=== PATIENT | female | born 1995 ===

== ENCOUNTER 2024-12-25 21:18 | Inpatient (IN) | payer OTHER, SELFPAY ==
--- NOTE | ~2024-12-25 | US_ITS ---
EXAMINATION: US RETROPERITONEAL COMPLETE (RENAL) CLINICAL INFORMATION: Urinary incontinence.. COMPARISON: None available. TECHNIQUE: Real-time imaging of the kidneys and bladder. FINDINGS: RIGHT KIDNEY: 12.4 x 5.3 x 5.2 cm (SAG x AP x TRV). The kidney is normal in size, contour, and echogenicity. Renal cortical thickness is normal. No calculi or focal parenchymal lesions. No hydronephrosis. LEFT KIDNEY: 11.8 x 5.3 x 5.0 cm (SAG x AP x TRV). The kidney is normal in size, contour, and echogenicity. Renal cortical thickness is normal. No calculi or focal parenchymal lesions. No hydronephrosis. BLADDER: Well distended and normal. Bilateral ureteral jets are demonstrated. Prevoid bladder volume is 571 mL. Postvoid bladder volume is 12.3 mL. US/US retroperitoneal comp IMPRESSION: Unremarkable renal ultrasound. Electronically signed by: Job Villagomez MD 01/01/2025 04:25 PM EDT
[2024-12-25 21:55] VITALS: BP 113/58; PULSE 106; RESP 18; TEMP 36.7; O2SAT 97; BMI 29.7
--- NOTE | 2024-12-25 22:05 | ECG_ITS ---
Test Reason : DIZZINESS Blood Pressure : */* mmHG Vent. Rate : 96 BPM Atrial Rate : 96 BPM P-R Int : 146 ms QRS Dur : 74 ms QT Int : 350 ms P-R-T Axes : 60 30 15 degrees QTcB Int : 442 ms Normal sinus rhythm Nonspecific T wave abnormality Abnormal ECG No previous ECGs available Referred By: Generic ED Physician Electronically Signed By: DIRK LUTZ MD
[2024-12-25 22:24] LABS: Hematocrit 38.2 % (37.0-47.0); Hemoglobin 13.5 g/dl (12.0-16.0); Imm Gran Abs Auto 0.03 X10*3/uL (0.00-0.03); Imm Gran Pct Auto 0.4 % (0.0-0.4); Lymphocytes Absolute Auto 2.0 X10*3/uL (1.2-4.9); MANUAL DIFF FLAG NO; Mean Corpuscular HGB Conc 35.3 g/dl (31.0-35.0); Mean Corpuscular Hemoglobin 30.2 pg (27.0-33.0); Mean Corpuscular Volume 85.5 fL (80.0-98.0); NRBC Abs Auto 0.000 X10*3/uL (0.0-0.012); NRBC Pct Auto 0.0 /100WBC (0.0-0.2); Platelet Count 237 X10*3/uL (160-400); Red Blood Count 4.47 X10*6/uL (4.20-5.50); White Blood Count 8.1 X10*3/uL (4.8-10.8)
[2024-12-25 22:38] LABS: Alanine Aminotransferase 17 U/L (0-31); Albumin Level 4.9 g/dL (3.5-5.0); Alkaline Phosphatase 54 U/L (39-117); Anion Gap 16 (12-20); Aspartate Amino Transferase 16 U/L (5-31); Blood Urea Nitrogen 9 mg/dL (9-16); Calcium 9.2 mg/dL (8.4-10.2); Carbon Dioxide 21 mmol/L (22-29); Chloride 109 mmol/L (96-108); Creatinine Clr Calc Pharmacy 100.4; Estimated Glomerular Filt Rate > 60; Potassium 3.5 mmol/L (3.3-5.1); Sodium 142 mmol/L (135-145); Total Protein 7.2 g/dL (6.5-8.0)
[2024-12-25 22:46] LABS: Troponin-I High Sensitivity < 2.7 ng/L (<3.5-17.0)
[2024-12-26 00:20] VITALS: BP 126/75; PULSE 87; RESP 16; TEMP 36.3; O2SAT 96
[2024-12-26 00:25] VITALS: BP 126/75; PULSE 87; RESP 16; TEMP 36.3; O2SAT 96
--- NOTE | 2024-12-26 00:54 | PC.NURSE ---
pt stated to RN that she had no plans of SI or hurting others; however stated she self injured last week cutting her thigh w/ a razor.
--- NOTE | 2024-12-26 01:35 | ED_ITS ---
HPI - General Adult General Chief complaint: General Medical Stated complaint: psy eval Time Seen by Provider: 12/26/24 01:04 Source: patient Mode of arrival: ambulatory Limitations: no limitations History of Present Illness ED Provider: Dr. Marisa Kinney HPI narrative: Patient comes to the emergency room complaining of having PTSD. Patient states that something triggered her PTSD, patient states that she was very anxious, running around, feeling dizzy. Patient states that she had a anxiety, possible panic attack, tunnel vision. Not sure if she passed out. Patient states that now that she has been in the emergency room sleeping, she feels much better and has no symptoms. Denies SI or HI. However, patient requesting to be seen by the care team. Patient states that she has been previously diagnosed with bipolar disorder, has been out of medications for 1 week, states that she just does not feel hungry, denies any nausea vomiting diarrhea or any abdominal pain. Related Data Allergies Allergy/AdvReac Type Severity Reaction Status Date / Time No Known Allergies Allergy Verified 12/25/24 21:55 Review of Systems 2 Review of Systems: Constitutional : No Weight loss, No Fever, No Chills, No Night Sweats, No Fatigue, No Malaise ENT/Mouth : No Hearing loss, No Ear Pain, No Nasal Congestion, No Sinus Pain, No Hoarseness, No sore throat, No Rhinorrhea, No Swallowing Difficulty Eyes: No Eye Pain, No Swelling, No Redness, No Foreign Body, No Discharge, No Vision Changes Cardiovascular : No Chest Pain, No SOB, No Dyspnea on Exertion, No Orthopnea, No Edema, No Palpitations Respiratory : No Cough, No Sputum, No Wheezing, No Smoke Exposure, No Dyspnea Gastrointestinal : No Nausea, No Vomiting, No Diarrhea, No Constipation, No abdominal Pain, No Hematochezia, No Melena Genitourinary : no irregular bleeding, No Dysuria, No Urinary Frequency, No Hematuria, No Urinary Incontinence, No Urgency, No Flank Pain, No Urinary Flow Changes, No Hesitancy Musculoskeletal : No joint pain, No Myalgias, No Joint Swelling Skin : No Skin Lesions, No rash Neuro : No Weakness, No Numbness, No Paresthesias, No Loss of Consciousness, No Dizziness, No Headache Psych : Complaining of anxiety, depression, having PTSD symptoms, triggers, no SI or HI Heme/Lymph: No Bruising, No Bleeding,No Lymphadenopathy Endocrine : No Polyuria, No Polydipsia, No Temperature Intolerance [facility] Past Medical History Medical History (Updated 12/26/24 @ 01:43 by Marisa Kinney MD) Bipolar disorder Social History Social History Smoked in Last 30 Days: Yes Use of substances other than those prescribed or required for medical reasons: No Advance Directives: No Advance Directives Information Provided: Yes Physical Exam ED Exam Exam: Appearance: Alert. Oriented X3. No acute distress. Eyes: Pupils equal, round and reactive to light. ENT: Pharynx normal. Neck: Normal inspection. Neck supple. No lymph nodes noted. No crepitus CVS: Normal heart rate and rhythm. Pulses normal. Normal S1 and S2 Respiratory: No respiratory distress. Breath sounds normal. No Wheezing. No rales Abdomen: Soft and nontender. No rigidity. No distention. Skin: Skin warm and dry. Normal skin color. Normal skin turgor. Extremities: No lower extremity edema. No Lacerations. No Rash Neuro: Oriented X 3. No motor deficit. No sensory deficit. Moving all extremities. No slurred speech. CN 2 through 12 grossly intact Psych: calm, cooperative, normal affect Vital Signs: Vital Signs - 24 hr 12/25/24 21:55 12/26/24 00:20 12/26/24 00:25 Temperature 98.0 F 97.3 F 97.3 F Pulse Rate 106 H 87 87 Respiratory Rate 18 16 16 Blood Pressure 113/58 L 126/75 126/75 Pulse Oximetry 97 96 96 Oxygen Delivery Method Room Air Room Air Room Air BMI result Body Mass Index 29.7 Course Course Course Narrative: Patient states that earlier today she was having a panic attack, dizziness. Denies chest pain or shortness of breath. Patient states that now that she has slept a few hours here in the ED, she feels much better and asymptomatic. Requesting to be seen by the care team. All of patient's labs and imaging pending Patient denies SI or HI Patient reports being out of meds for 1 week because she has not been hungry and she is supposed to take her meds with food Medical Decision Making Medical Decision Making MDM Narrative: My interpretation of EKG: Normal sinus rhythm, heart rate 96, no ST segment depression or elevation, no T-wave inversion, QTC 442 My interpretation of labs: No significant abnormality in patient's hematology and chemistry Urinalysis pending Care team consult pending Physician observation started at 01:40 Patient is not SI or HI, Section 12 is not indicated at this time Differential Diagnosis Differential Diagnoses: The differential diagnosis associated with the presentation includes (Anxiety, depression, bipolar disorder, PTSD) Admission/Observation Consideration of admission/observation: Escalation of care including admission/observation considered (Patient is under physician observation waiting to be seen by the care team) Lab Data MDM Lab Attestation statement: I reviewed the patient's lab results. 12/25/24 22:19 12/25/24 22:19 Labs: Lab Results 12/25/24 Range/Units 22:19 WBC 8.1 (4.8-10.8) X10*3/uL RBC 4.47 (4.20-5.50) X10*6/uL Hgb 13.5 (12.0-16.0) g/dl Hct 38.2 (37.0-47.0) % MCV 85.5 (80.0-98.0) fL MCH 30.2 (27.0-33.0) pg MCHC 35.3 H (31.0-35.0) g/dl RDW 12.4 (11.0-16.0) % Plt Count 237 (160-400) X10*3/uL MPV 9.7 (9.4-12.3) fL Immature Gran % (Auto) 0.4 (0.0-0.4) % Neut % (Auto) 68.9 (45-73) % Lymph % (Auto) 24.1 (20-40) % Avery % (Auto) 5.9 (2-11) % Eos % (Auto) 0.5 (0-4) % Baso % (Auto) 0.2 (0-2) % Lymph # (Auto) 2.0 (1.2-4.9) X10*3/uL [place] # (Auto) 0.5 (0.1-1.2) X10*3/uL Eos # (Auto) 0.0 (0.0-0.4) X10*3/uL Baso # (Auto) 0.0 (0.0-0.2) X10*3/uL Abs Immat Gran (auto) 0.03 (0.00-0.03) X10*3/uL Absolute Neuts (auto) 5.6 (2.0-8.3) x10*3/uL Absolute Nucleated RBC 0.000 (0.0-0.012) X10*3/uL Nucleated RBC % (auto) 0.0 (0.0-0.2) /100WBC Sodium 142 (135-145) mmol/L Potassium 3.5 (3.3-5.1) mmol/L Chloride 109 H (96-108) mmol/L Carbon Dioxide 21 L (22-29) mmol/L Anion Gap 16 (12-20) BUN 9 (9-16) mg/dL Creatinine 0.94 (0.5-1.4) mg/dL Estim Creat Clear Calc 100.4 Estimated GFR > 60 Random Glucose 134 H (60-115) mg/dL Calcium 9.2 (8.4-10.2) mg/dL Total Bilirubin 0.9 (0.0-1.0) mg/dL AST 16 (5-31) U/L ALT 17 (0-31) U/L Alkaline Phosphatase 54 (39-117) U/L Troponin I High Sens < 2.7 (<3.5-17.0) ng/L Total Protein 7.2 (6.5-8.0) g/dL Albumin 4.9 (3.5-5.0) g/dL Beta HCG, Quant < 2 mIU/mL Critical Care Time Critical Care Time Critical Care Time: Yes Total Critical Care Time: 35 Attestation: I have personally provided critical care time. Time includes review of lab data, radiology results, discussion with consultants, and monitoring for potential decompensation. Intervention performed as documented. Discharge Plan Discharge Clinical Impression: Post traumatic stress disorder Print Language: [place]
[2024-12-26 02:06] VITALS: BP 108/69; PULSE 90; RESP 16; TEMP 36.4; O2SAT 98
--- NOTE | 2024-12-26 02:06 | MHC.EDTECH ---
Pt changed due to being seen by care team. Per RN, Pt OK to keep phone and belongings at bedside (no SI/HI). Urine collected and sent. Vital signs up to date
[2024-12-26 02:12] LABS: Appearance Urine Cloudy; Glucose Urine UA Negative (Negative); PH 6.0 (5.0-9.0); Specific Gravity - Urine >= 1.030 (1.005-1.025); UMIC TRIGGER UACC YES
[2024-12-26 02:20] LABS: Cannabinoid Screen Urine Not Detected (Not Detect)
[2024-12-26 05:51] VITALS: BP 110/73; PULSE 87; RESP 16; TEMP 36.2; O2SAT 98
--- NOTE | 2024-12-26 08:49 | PC.NURSE ---
Pt seen by crisis team staff; pt to be an inpatient bedsearch; pt will be changed over per protocol and belongings secured
--- NOTE | 2024-12-26 09:20 | PC.NURSE ---
Pt resting quietly on stretcher; denies SI/HI at this time; cooperative with care and exchange teller; verbal report gv to JOSIE Guevara and pt to be moved to the pod
--- NOTE | 2024-12-26 11:27 | PC.NURSE ---
med rec completed with patient. Patient stating she usually takes latuda 60mg daily but took 120mg yesterday, but feels she would like to stop latuda at this time. states no longer taking wellbutrin or risperidal. takes ativan 0.5mg prn as needed for anxiety- usually her script lasts her about 2 months but this month it only lasted her x 1 month. Has been taking prazosin 7mg at bedtime.
--- NOTE | 2024-12-26 13:48 | PHA.MEDREC ---
Pharmacy Consult ? Medication Reconciliation Pharmacy has reviewed the medication reconciliation completed by nursing. Pt states no longer taking wellbutrin or risperidal. She takes ativan 0.5mg prn as needed for anxiety.
[2024-12-26 14:12] VITALS: BP 123/77; PULSE 77; RESP 18; TEMP 36.3; O2SAT 95; BMI 29.5
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
[2024-12-26 19:54] VITALS: BP 96/53; PULSE 71; O2SAT 99
[2024-12-27 08:00] VITALS: BP 94/48; PULSE 79; RESP 18; TEMP 36.1; O2SAT 98
[2024-12-27 08:45] LABS: Hemoglobin A1C 117.5492 umol/L; Total Hemoglobin (HGBA1C) 3515.6819 umol/L
[2024-12-27 09:03] LABS: Alanine Aminotransferase 20 U/L (0-31); Albumin Level 4.5 g/dL (3.5-5.0); Alkaline Phosphatase 58 U/L (39-117); Aspartate Amino Transferase 17 U/L (5-31); Blood Urea Nitrogen 11 mg/dL (9-16); Calcium 9.2 mg/dL (8.4-10.2); Cholesterol 188 mg/dL (<200); Creatinine Clr Calc Pharmacy 92.2; Estimated Glomerular Filt Rate > 60; HDL Cholesterol 29 mg/dL (>40); Total Protein 6.6 g/dL (6.5-8.0); Triglycerides 117 mg/dL (<150)
[2024-12-27 09:10] LABS: Anion Gap 12 (12-20); Carbon Dioxide 27 mmol/L (22-29); Chloride 108 mmol/L (96-108); Potassium 3.8 mmol/L (3.3-5.1); Sodium 143 mmol/L (135-145)
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
[2024-12-27 09:17] LABS: Thyroid Stimulating Hormone 0.70 uIU/mL (0.32-4.0)
[2024-12-27 20:00] VITALS: BP 118/66; PULSE 90; TEMP 36.1; O2SAT 94
[2024-12-27 20:31] VITALS: BP 118/66
[2024-12-28 08:00] VITALS: BP 94/52; PULSE 63; RESP 16; TEMP 36.8; O2SAT 98
[2024-12-28 20:00] VITALS: BP 112/60; PULSE 72; RESP 16; TEMP 36.6; O2SAT 97
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
[2024-12-29 08:00] VITALS: BP 96/59; PULSE 72; RESP 16; TEMP 36.7; O2SAT 97
[2024-12-29] MEDS: Milk of Magnesia 30 ML ORAL.SUSP PO (11:26)
[2024-12-29 20:00] VITALS: BP 98/53; PULSE 89; TEMP 36.1; O2SAT 97
[2024-12-29 20:21] VITALS: BP 98/53
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
[2024-12-30 08:00] VITALS: BP 94/51; PULSE 65; RESP 16; TEMP 35.9; O2SAT 97
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
[2024-12-30] MEDS: Milk of Magnesia 30 ML ORAL.SUSP PO (12:15)
[2024-12-30 20:00] VITALS: BP 126/73; PULSE 92; RESP 16; TEMP 36.6; O2SAT 99
[2024-12-30 20:23] VITALS: BP 126/73
--- NOTE | 2024-12-30 23:04 | PC.NURSE ---
Patient c/o body aches and said the aching shortly after taking Remeron. Vitals at 2255 temp 96.7 O2 on room air 99 BP 107/68 pulse 83, right arm sitting.
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
[2024-12-31 07:52] VITALS: BP 106/58; PULSE 76; RESP 18; TEMP 36.3; O2SAT 97
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
[2024-12-31 11:42] LABS: HBsAGNum1 0.37 S/CO (0.00-0.99); HIV Num 1 0.04 S/CO (0.00-0.99); Hepatitis B Surface Antigen Negative (Negative); Syphilis Screen Nonreactive (Nonreactive); ~HepC Num1 0.07 S/CO (0.00-0.79); ~Hepatitis C Antibody Nonreactive (Nonreactive)
[2024-12-31 11:50] LABS: Bacterial Vaginosis PCR POSITIVE (Negative); Candida Group PCR NOT DETECTED (Not Detect); Candida glab krusei PCR NOT DETECTED (Not Detect); Trichomonas vaginalis PCR NOT DETECTED (Not Detect)
[2024-12-31 12:20] LABS: CT PCR NOT DETECTED (Not Detect.); NG PCR NOT DETECTED (Not Detect.)
[2024-12-31 20:00] VITALS: BP 128/84; PULSE 105; TEMP 36.6; O2SAT 94
[2024-12-31 20:23] VITALS: BP 128/84
[2025-01-01 08:00] VITALS: BP 134/68; PULSE 95; TEMP 36.1; O2SAT 99
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
[2025-01-01 20:00] VITALS: BP 127/83; PULSE 100; RESP 16; TEMP 36.7; O2SAT 97
[2025-01-01 20:26] VITALS: BP 127/83
--- NOTE | 2025-01-02 | EEG_ITS ---
This is a 16 channel EEG with an EKG lead. Patient is reported awake during the tracing. Background EEG rhythm is about 10 hertz 5-20 microvolt posteriorly and lower amplitude fast anteriorly. Photic stimulation does not produce any significant abnormality. Hyperventilation also did not produce any significant problem. Cardiac lead did not reveal any significant abnormality. No sharp wave spikes or paroxysmal tendency or asymmetry noted. Impression: Unremarkable EEG. MTDD
[2025-01-02 07:00] VITALS: BMI 31.5
[2025-01-02 08:00] VITALS: BP 114/71; PULSE 92; RESP 18; TEMP 36.2; O2SAT 98
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
--- NOTE | 2025-01-02 12:36 | P.PNUR_ITS ---
Subjective Subjective Date of Service: 01/02/25 Interval history: Reviewed renal bladder ultrasound results with the patient, within normal limits. Urine culture pending Physical Exam 2 Vital Signs: Vital Signs: Last Vital Signs Temp 97.1 F 01/02/25 08:00 Pulse 92 01/02/25 08:00 Resp 18 01/02/25 08:00 BP 114/71 01/02/25 08:00 Pulse Ox 98 01/02/25 08:00 O2 Del Method Room Air 01/02/25 08:00 BMI result Body Mass Index 31.5 Urology Results Labs 12/25/24 22:19 12/27/24 07:56 Progress Note: A&P Assessment and plan (1) Post traumatic stress disorder: Status: Acute (2) Urinary incontinence: Status: Acute Plan Will trial low-dose anticholinergic, oxybutynin ER 5 mg daily. Urine culture pending. Discussed timed voiding and limiting caffeine intake and dietary bladder irritants, carbonated beverages, spicy food. The patient has been doing Kegel exercises. May benefit in the future as an outpatient with pelvic floor physical therapy. Time Spent With Patient Time: Total time managing care of this patient today ____ minutes.
[2025-01-02 20:00] VITALS: BP 113/67; PULSE 102; RESP 16; TEMP 36.1; O2SAT 96
[2025-01-03 08:00] VITALS: BP 128/79; PULSE 89; RESP 16; TEMP 36.7; O2SAT 97
[2025-01-03] MEDS: oxyBUTYnin chloride ER 5 MG TAB.ER.24 PO (08:43)
--- NOTE | 2025-01-03 10:27 | HO.PSYCHPN ---
Subjective Subjective Date of Service: 01/03/25 Reason For Visit: PTSD Subjective Notes: Conditional Voluntary Healthcare Proxy: No Guardianship: No Medical Problems Affecting Mental Status: No Interim History: Pt declined skull xrays, CAT Head and MRI. She did accept EEG which was completed. She discussed wanting to begin a stimulant which will wait until out pt care post MRI. Report sleep is improving, but still interrupted- will trial prn CPZ 10 mg HS Denies SI,HI,AH,VH. Probable discharge next week. Pt not feeling ready at the current time. Full med review with pt today. Medication Compliance: Yes Side effects from medications: No Attending Groups: Yes Review of Systems eval in progress Medical Review of Systems: unchanged Review of Systems Review of Systems sleep- SANDY, needing to get up last night to eat, however reports feeling well rested today. Mental Status Exam Mental Status Exam Patient Appearance: Appropriate Patient Orientation: Person, Place, Time and Situation Level of Consciousness: Alert Patient Behavior: Talkative, Fatigued, Distractible and Good Eye Contact Mood Description: Depressed and Apprehensive Affect Description: Flat Patient Cognition Impaired: No Ability to Follow Directions: Good Speech Pattern: Spontaneous Speech Memory Description: Episodic Impaired Hallucinations: None Delusions: Not Present Perceptual Disturbances: Depersonalization and Derealization Thought Process: Distracted Thought Content: positive for Circumstantial and positive for Perseveration Depressive Symptoms: Increased Anxiety, Diff. Making Decisions, Increased Fatigue and Difficulty Concentrating Judgement: Fair Diagnostics Vital Signs (24Hr): Vital Signs - 24 hr 01/02/25 20:00 Temperature 97.0 F Pulse Rate 102 H Respiratory Rate 16 Blood Pressure 113/67 Pulse Oximetry 96 Oxygen Delivery Method Room Air BMI result Body Mass Index 31.5 Labs 12/25/24 22:19 12/27/24 07:56 Imaging Radiology Impressions: ITS Impressions Retroperitoneum Ultrasound 01/01/25 16:02 IMPRESSION: Unremarkable renal ultrasound. Electronically signed by: Job Villagomez MD 01/01/2025 04:25 PM EDT RP Medications Medications Current Medications Acetaminophen (Acetaminophen 325 Mg Tablet) 650 mg PO Q6H PRN PRN Reason: Headache/Pain, Scale 1-10 Last Admin: 12/30/24 23:00 Dose: 650 mg Al Hydroxide/Mg Hydroxide (Magnesium Hydrox/Alum Hydrox 30 Ml Oral.Susp) 30 ml PO Q6H PRN PRN Reason: Heartburn/Nausea Benztropine Mesylate (Benztropine Mesylate 1 Mg Tablet) 1 mg PO BEDTIME MICKEY Last Admin: 01/02/25 20:45 Dose: 1 mg Bisacodyl (Bisacodyl 5 Mg Tablet.Dr) 10 mg PO DAILY PRN PRN Reason: Constipation Hydroxyzine HCl (Hydroxyzine Hcl 50 Mg Tablet) 50 mg PO Q6H PRN PRN Reason: mild anxiety Lorazepam (Lorazepam 0.5 Mg Tablet) 0.5 mg PO BID PRN PRN Reason: Anxiety Last Admin: 01/02/25 11:55 Dose: 0.5 mg Magnesium Hydroxide (Milk Of Magnesia 30 Ml Oral.Susp) 30 ml PO DAILY PRN PRN Reason: Constipation Last Admin: 12/30/24 12:15 Dose: 30 ml Metronidazole (Metronidazole 500 Mg Tablet) 500 mg PO BID MICKEY Last Admin: 01/03/25 08:43 Dose: 500 mg Mirtazapine (Mirtazapine 7.5 Mg Tablet) 7.5 mg PO BEDTIME MICKEY Last Admin: 01/02/25 20:45 Dose: 7.5 mg Nicotine (Nicotine 14 Mg Patch.Td24) 14 mg TRANSDERMA DAILY PRN PRN Reason: Smoking cessation Nicotine Polacrilex (Nicotine Polacrilex 2 Mg Gum) 2 mg BUCCAL Q2H PRN PRN Reason: Nicotine Cravings Last Admin: 01/03/25 10:01 Dose: 2 mg Olanzapine (Olanzapine 10 Mg Tablet) 10 mg PO BEDTIME MICKEY Last Admin: 01/02/25 20:45 Dose: 10 mg Olanzapine (Olanzapine 2.5 Mg Tablet) 2.5 mg PO BID PRN PRN Reason: agitation Last Admin: 01/03/25 10:01 Dose: 2.5 mg Oxybutynin Chloride (Oxybutynin Chloride Er 5 Mg Tab.Er.24) 5 mg PO DAILY MICKEY Last Admin: 01/03/25 08:43 Dose: 5 mg Polyethylene Glycol (Polyethylene Glycol 3350 17 Gm Powd.Pack) 17 gm PO DAILY PRN PRN Reason: Constipation Prazosin HCl (Prazosin Hcl 1 Mg Capsule) 3 mg PO BEDTIME MICKEY; Protocol Last Admin: 01/02/25 20:44 Dose: 3 mg Trazodone HCl (Trazodone Hcl 50 Mg Tablet) 50 mg PO BEDTIME PRN PRN Reason: Insomnia Last Admin: 12/30/24 20:22 Dose: 50 mg Allergies Allergies Allergy/AdvReac Type Severity Reaction Status Date / Time No Known Allergies Allergy Verified 12/25/24 21:55 Assessment & Plan Assessment & Plan (1) Post traumatic stress disorder: Status: Acute Code(s): F43.10 - Post-traumatic stress disorder, unspecified (2) Bipolar disorder: Status: Acute Code(s): F31.9 - Bipolar disorder, unspecified Plan 01/03/25: CPZ 10 mg hs prn Discharge planning for next week. Reason for continued inpatient stay Substantial Risk for: rapid decompensation Time Spent With Patient Time: Total time managing care of this patient today ____ minutes.
[2025-01-03 20:00] VITALS: BP 112/69; PULSE 106; TEMP 36.2; O2SAT 96
[2025-01-03 20:28] VITALS: BP 112/69
[2025-01-04 08:00] VITALS: BP 111/58; PULSE 98; TEMP 36.1; O2SAT 97
[2025-01-04] MEDS: oxyBUTYnin chloride ER 5 MG TAB.ER.24 PO (09:55)
--- NOTE | 2025-01-04 17:32 | HO.PSYCHPN ---
Subjective Subjective Date of Service: 01/04/25 Reason For Visit: PTSD Interim History: Remains depressed but says she is feeling better than when she came in. She says she felt out of it this morning when she woke up and thinks it may be related to the Trazodone. EEG non-revealing and unremarkable. Denies SI,HI,AH,VH. Review of Systems Review of Systems sleep- SANDY, needing to get up last night to eat, however reports feeling well rested today. Yes all other systems are reviewed and are negative Constitutional: Reports no additional constitutional complaints Eyes: Reports no additional eye complaints Reports system reviewed and no additional complaints, except as documented Cardiovascular: Reports no additional cardiovascular complaints Respiratory: Reports no additional respiratory complaints Gastrointestinal: Reports no additional gastrointestinal complaints Musculoskeletal: Reports no additional musculoskeletal complaints Skin/Breast: Reports system reviewed and no additional complaints, except as docu Reports system reviewed and no additional complaints, except as documented Psychiatric: Reports no additional psychiatric complaints Endocrine: Reports no additional endocrine complaints Hematologic/Lymphatic: Reports no additional hematologic/lymphatic complaints Allergic/Immunologic: Reports no additional allergic/immunologic complaints Mental Status Exam Mental Status Exam Narrative: Appearance: Casually dressed, adequate hygiene Behavior: Calm and cooperative throughout the interview. Eye contact is appropriate, and there are no signs of psychomotor agitation or retardation Speech: Normal volume and prosody Thought process: Logical and goal-directed Thought content: Future oriented no self-harming thoughts, focus on past physical trauma which he correlates to neurological symptoms Mood: Calm Affect: Constricted SI:denies HI:denies VH/AH:none Delusions: None Insight/judgment: Fair insight and judgment Memory/cog: Alert, oriented x 4. grossly intact to conversational testing Patient Appearance: Appropriate Patient Orientation: Person, Place, Time and Situation Level of Consciousness: Alert Patient Behavior: Talkative, Fatigued, Distractible and Good Eye Contact Mood Description: Depressed and Apprehensive Affect Description: Flat Patient Cognition Impaired: No Ability to Follow Directions: Good Speech Pattern: Spontaneous Speech Memory Description: Episodic Impaired Diagnostics Vital Signs (24Hr): Vital Signs - 24 hr 01/03/25 20:00 01/03/25 20:28 01/04/25 08:00 Temperature 97.1 F 96.9 F Pulse Rate 106 H 98 Blood Pressure 112/69 112/69 111/58 L Pulse Oximetry 96 97 Oxygen Delivery Method Room Air Room Air BMI result Body Mass Index 31.5 Labs 12/25/24 22:19 12/27/24 07:56 Imaging Radiology Impressions: ITS Impressions Retroperitoneum Ultrasound 01/01/25 16:02 IMPRESSION: Unremarkable renal ultrasound. Electronically signed by: Job Villagomez MD 01/01/2025 04:25 PM EDT RP Medications Medications Current Medications Acetaminophen (Acetaminophen 325 Mg Tablet) 650 mg PO Q6H PRN PRN Reason: Headache/Pain, Scale 1-10 Last Admin: 12/30/24 23:00 Dose: 650 mg Al Hydroxide/Mg Hydroxide (Magnesium Hydrox/Alum Hydrox 30 Ml Oral.Susp) 30 ml PO Q6H PRN PRN Reason: Heartburn/Nausea Benztropine Mesylate (Benztropine Mesylate 1 Mg Tablet) 1 mg PO BEDTIME MICKEY Last Admin: 01/03/25 20:28 Dose: 1 mg Bisacodyl (Bisacodyl 5 Mg Tablet.Dr) 10 mg PO DAILY PRN PRN Reason: Constipation Chlorpromazine HCl (Chlorpromazine Hcl 10 Mg Tablet) 10 mg PO BEDTIME PRN PRN Reason: sleep quality Hydroxyzine HCl (Hydroxyzine Hcl 50 Mg Tablet) 50 mg PO Q6H PRN PRN Reason: mild anxiety Last Admin: 01/03/25 11:11 Dose: 50 mg Lorazepam (Lorazepam 0.5 Mg Tablet) 0.5 mg PO BID PRN PRN Reason: Anxiety Last Admin: 01/04/25 11:43 Dose: 0.5 mg Magnesium Hydroxide (Milk Of Magnesia 30 Ml Oral.Susp) 30 ml PO DAILY PRN PRN Reason: Constipation Last Admin: 12/30/24 12:15 Dose: 30 ml Metronidazole (Metronidazole 500 Mg Tablet) 500 mg PO BID MICKEY Last Admin: 01/04/25 09:55 Dose: 500 mg Mirtazapine (Mirtazapine 7.5 Mg Tablet) 7.5 mg PO BEDTIME MICKEY Last Admin: 01/03/25 20:28 Dose: 7.5 mg Nicotine (Nicotine 14 Mg Patch.Td24) 14 mg TRANSDERMA DAILY PRN PRN Reason: Smoking cessation Nicotine Polacrilex (Nicotine Polacrilex 2 Mg Gum) 2 mg BUCCAL Q2H PRN PRN Reason: Nicotine Cravings Last Admin: 01/04/25 12:36 Dose: 2 mg Olanzapine (Olanzapine 10 Mg Tablet) 10 mg PO BEDTIME MICKEY Last Admin: 01/03/25 20:29 Dose: 10 mg Olanzapine (Olanzapine 2.5 Mg Tablet) 2.5 mg PO BID PRN PRN Reason: agitation Last Admin: 01/04/25 11:43 Dose: 2.5 mg Oxybutynin Chloride (Oxybutynin Chloride Er 5 Mg Tab.Er.24) 5 mg PO DAILY MICKEY Last Admin: 01/04/25 09:55 Dose: 5 mg Polyethylene Glycol (Polyethylene Glycol 3350 17 Gm Powd.Pack) 17 gm PO DAILY PRN PRN Reason: Constipation Prazosin HCl (Prazosin Hcl 1 Mg Capsule) 3 mg PO BEDTIME MICKEY; Protocol Last Admin: 01/03/25 20:28 Dose: 3 mg Trazodone HCl (Trazodone Hcl 25 Mg Halftab) 25 mg PO BEDTIME PRN PRN Reason: Insomnia Allergies Allergies Allergy/AdvReac Type Severity Reaction Status Date / Time No Known Allergies Allergy Verified 12/25/24 21:55 Assessment & Plan Assessment & Plan (1) Post traumatic stress disorder: Status: Acute Code(s): F43.10 - Post-traumatic stress disorder, unspecified (2) Bipolar disorder: Status: Acute Code(s): F31.9 - Bipolar disorder, unspecified Plan 01/03/25: CPZ 10 mg hs prn Discharge planning for next week. 01/04/25: Decrease Trazodone to 25 mg HS PRN. Otherwise continue current management and treatment plan. Reason for continued inpatient stay Substantial Risk for: inability to function and rapid decompensation Time Spent With Patient Time: Total time managing care of this patient today ____ minutes.
[2025-01-04 19:39] VITALS: BP 125/75; PULSE 98; RESP 16; TEMP 36.6; O2SAT 97
[2025-01-04] MEDS: traZODone HCL 25 MG HALFTAB PO (20:32)
[2025-01-05 08:00] VITALS: BP 106/67; PULSE 92; TEMP 36.1; O2SAT 97
[2025-01-05] MEDS: oxyBUTYnin chloride ER 5 MG TAB.ER.24 PO (08:56)
[2025-01-05] MEDS: Milk of Magnesia 30 ML ORAL.SUSP PO (09:16)
--- NOTE | 2025-01-05 09:21 | HO.PSYCHPN ---
Subjective Subjective Date of Service: 01/05/25 Reason For Visit: PTSD Interim History: She still woke up groggy in spite of lower dose of Trazodone. Woke up intermittently at night. However, says overall sleep is much improved compared to when she arrived. She is alert and awake. No evidence of delirium or mental status changes. Denies SI,HI,AH,VH. Review of Systems Review of Systems sleep- SANDY, needing to get up last night to eat, however reports feeling well rested today. Yes all other systems are reviewed and are negative Constitutional: Reports no additional constitutional complaints Eyes: Reports no additional eye complaints Reports system reviewed and no additional complaints, except as documented Cardiovascular: Reports no additional cardiovascular complaints Respiratory: Reports no additional respiratory complaints Gastrointestinal: Reports no additional gastrointestinal complaints Musculoskeletal: Reports no additional musculoskeletal complaints Skin/Breast: Reports system reviewed and no additional complaints, except as docu Reports system reviewed and no additional complaints, except as documented Psychiatric: Reports no additional psychiatric complaints Endocrine: Reports no additional endocrine complaints Hematologic/Lymphatic: Reports no additional hematologic/lymphatic complaints Allergic/Immunologic: Reports no additional allergic/immunologic complaints Mental Status Exam Mental Status Exam Narrative: Appearance: Casually dressed, adequate hygiene Behavior: Calm and cooperative throughout the interview. Eye contact is appropriate, and there are no signs of psychomotor agitation or retardation Speech: Normal volume and prosody Thought process: Logical and goal-directed Thought content: Future oriented no self-harming thoughts, focus on past physical trauma which he correlates to neurological symptoms Mood: Calm Affect: Constricted SI:denies HI:denies VH/AH:none Delusions: None Insight/judgment: Fair insight and judgment Memory/cog: Alert, oriented x 4. grossly intact to conversational testing Patient Appearance: Appropriate Patient Orientation: Person, Place, Time and Situation Level of Consciousness: Alert Patient Behavior: Talkative, Fatigued, Distractible and Good Eye Contact Mood Description: Depressed and Apprehensive Affect Description: Flat Patient Cognition Impaired: No Ability to Follow Directions: Good Speech Pattern: Spontaneous Speech Memory Description: Episodic Impaired Diagnostics Vital Signs (24Hr): Vital Signs - 24 hr 01/04/25 19:39 01/05/25 08:00 Temperature 97.9 F 96.9 F Pulse Rate 98 92 Respiratory Rate 16 Blood Pressure 125/75 106/67 Pulse Oximetry 97 97 Oxygen Delivery Method Room Air Room Air BMI result Body Mass Index 31.5 Labs 07/30/25 22:19 12/27/24 07:56 Imaging Radiology Impressions: ITS Impressions Retroperitoneum Ultrasound 01/01/25 16:02 IMPRESSION: Unremarkable renal ultrasound. Electronically signed by: Job Villagomez MD 01/01/2025 04:25 PM EDT RP Medications Medications Current Medications Acetaminophen (Acetaminophen 325 Mg Tablet) 650 mg PO Q6H PRN PRN Reason: Headache/Pain, Scale 1-10 Last Admin: 12/30/24 23:00 Dose: 650 mg Al Hydroxide/Mg Hydroxide (Magnesium Hydrox/Alum Hydrox 30 Ml Oral.Susp) 30 ml PO Q6H PRN PRN Reason: Heartburn/Nausea Benztropine Mesylate (Benztropine Mesylate 1 Mg Tablet) 1 mg PO BEDTIME MICKEY Last Admin: 01/04/25 20:32 Dose: 1 mg Bisacodyl (Bisacodyl 5 Mg Tablet.Dr) 10 mg PO DAILY PRN PRN Reason: Constipation Chlorpromazine HCl (Chlorpromazine Hcl 10 Mg Tablet) 10 mg PO BEDTIME PRN PRN Reason: sleep quality Hydroxyzine HCl (Hydroxyzine Hcl 50 Mg Tablet) 50 mg PO Q6H PRN PRN Reason: mild anxiety Last Admin: 01/05/25 09:16 Dose: 50 mg Lorazepam (Lorazepam 0.5 Mg Tablet) 0.5 mg PO BID PRN PRN Reason: Anxiety Last Admin: 01/04/25 11:43 Dose: 0.5 mg Magnesium Hydroxide (Milk Of Magnesia 30 Ml Oral.Susp) 30 ml PO DAILY PRN PRN Reason: Constipation Last Admin: 01/05/25 09:16 Dose: 30 ml Metronidazole (Metronidazole 500 Mg Tablet) 500 mg PO BID MICKEY Last Admin: 01/05/25 08:56 Dose: 500 mg Mirtazapine (Mirtazapine 7.5 Mg Tablet) 7.5 mg PO BEDTIME MICKEY Last Admin: 01/04/25 21:04 Dose: 7.5 mg Nicotine (Nicotine 14 Mg Patch.Td24) 14 mg TRANSDERMA DAILY PRN PRN Reason: Smoking cessation Nicotine Polacrilex (Nicotine Polacrilex 2 Mg Gum) 2 mg BUCCAL Q2H PRN PRN Reason: Nicotine Cravings Last Admin: 01/05/25 09:16 Dose: 2 mg Olanzapine (Olanzapine 10 Mg Tablet) 10 mg PO BEDTIME MICKEY Last Admin: 01/04/25 20:32 Dose: 10 mg Olanzapine (Olanzapine 2.5 Mg Tablet) 2.5 mg PO BID PRN PRN Reason: agitation Last Admin: 01/04/25 11:43 Dose: 2.5 mg Oxybutynin Chloride (Oxybutynin Chloride Er 5 Mg Tab.Er.24) 5 mg PO DAILY MICKEY Last Admin: 01/05/25 08:56 Dose: 5 mg Polyethylene Glycol (Polyethylene Glycol 3350 17 Gm Powd.Pack) 17 gm PO DAILY PRN PRN Reason: Constipation Last Admin: 01/05/25 09:16 Dose: 17 gm Prazosin HCl (Prazosin Hcl 1 Mg Capsule) 3 mg PO BEDTIME MICKEY; Protocol Last Admin: 01/04/25 20:32 Dose: 3 mg Trazodone HCl (Trazodone Hcl 25 Mg Halftab) 25 mg PO BEDTIME PRN PRN Reason: Insomnia Last Admin: 01/04/25 20:32 Dose: 25 mg Allergies Allergies Allergy/AdvReac Type Severity Reaction Status Date / Time No Known Allergies Allergy Verified 12/25/24 21:55 Assessment & Plan Assessment & Plan (1) Post traumatic stress disorder: Status: Acute Code(s): F43.10 - Post-traumatic stress disorder, unspecified (2) Bipolar disorder: Status: Acute Code(s): F31.9 - Bipolar disorder, unspecified Plan 01/03/25: CPZ 10 mg hs prn Discharge planning for next week. 01/04/25: Decrease Trazodone to 25 mg HS PRN. Otherwise continue current management and treatment plan. 01/05: DC Trazodone PRN. Try Chlorpromazine 10 mg PRN instead as previously suggested by primary team. Continue current management and treatment plan. Reason for continued inpatient stay Substantial Risk for: harm to self, inability to function and rapid decompensation Time Spent With Patient Time: Total time managing care of this patient today ____ minutes.
[2025-01-05 19:47] VITALS: BP 122/70; PULSE 96; RESP 16; TEMP 36.8; O2SAT 96
[2025-01-05 20:31] VITALS: BP 122/70
[2025-01-06] MEDS: oxyBUTYnin chloride ER 5 MG TAB.ER.24 PO (08:03)
[2025-01-06 08:43] VITALS: BP 106/50; PULSE 80; RESP 18; TEMP 36.1; O2SAT 97
--- NOTE | 2025-01-06 10:09 | P.PNPSI_ITS ---
Subjective Subjective Date of Service: 01/06/25 Reason For Visit: PTSD Subjective Notes: Conditional Voluntary Healthcare Proxy: No Guardianship: No Medical Problems Affecting Mental Status: No Interim History: Discussed discharge for this week. Pt is in agreement. Will plan for 01/09. Pt discussed making provider changes, reflecting on past insidences of not feeling heard when changes needed to be made. Asking to begin a stimulant. MRI from [facility] obtained-no intracranial mass or mass effect. A few scattered small flair bright foci within the supratentorial white matter are nonspecific. These may represent the sequela of an inflammatory process. Small white matter lesions have also been reported in patients with migraine headache. This testing was completed 08/28/23. Medication Compliance: Yes Side effects from medications: No Attending Groups: Intermittent Review of Systems Acute medical concerns: No Medical Review of Systems: unchanged Review of Systems Review of Systems Denies Mental Status Exam Mental Status Exam Patient Appearance: Appropriate Patient Orientation: Person, Place, Time and Situation Level of Consciousness: Alert Patient Behavior: Talkative and Good Eye Contact Mood Description: Constricted Affect Description: Constricted Patient Cognition Impaired: No Ability to Follow Directions: Good Speech Pattern: Spontaneous Speech Memory Description: Intact and Episodic Impaired Hallucinations: None Delusions: Not Present Thought Process: Goal Oriented Thought Content: positive for Goal Oriented and positive for Suicidal Ideation (denies) Depressive Symptoms: Increased Anxiety Judgement: Good Diagnostics Vital Signs (24Hr): Vital Signs - 24 hr 01/05/25 19:47 01/05/25 20:31 01/06/25 08:43 Temperature 98.3 F 96.9 F Pulse Rate 96 80 Respiratory Rate 16 18 Blood Pressure 122/70 122/70 106/50 L Pulse Oximetry 96 97 Oxygen Delivery Method Room Air Room Air BMI result Body Mass Index 31.5 Labs 12/25/24 22:19 12/27/24 07:56 Imaging Radiology Impressions: ITS Impressions Retroperitoneum Ultrasound 01/01/25 16:02 IMPRESSION: Unremarkable renal ultrasound. Electronically signed by: Job Villagomez MD 01/01/2025 04:25 PM EDT Medications Medications Current Medications Acetaminophen (Acetaminophen 325 Mg Tablet) 650 mg PO Q6H PRN PRN Reason: Headache/Pain, Scale 1-10 Last Admin: 01/05/25 09:55 Dose: 650 mg Al Hydroxide/Mg Hydroxide (Magnesium Hydrox/Alum Hydrox 30 Ml Oral.Susp) 30 ml PO Q6H PRN PRN Reason: Heartburn/Nausea Benztropine Mesylate (Benztropine Mesylate 1 Mg Tablet) 1 mg PO BEDTIME MICKEY Last Admin: 01/05/25 20:31 Dose: 1 mg Bisacodyl (Bisacodyl 5 Mg Tablet.Dr) 10 mg PO DAILY PRN PRN Reason: Constipation Chlorpromazine HCl (Chlorpromazine Hcl 10 Mg Tablet) 10 mg PO BEDTIME PRN PRN Reason: sleep quality Hydroxyzine HCl (Hydroxyzine Hcl 50 Mg Tablet) 50 mg PO Q6H PRN PRN Reason: mild anxiety Last Admin: 01/05/25 09:16 Dose: 50 mg Lorazepam (Lorazepam 0.5 Mg Tablet) 0.5 mg PO BID PRN PRN Reason: Anxiety Last Admin: 01/04/25 11:43 Dose: 0.5 mg Magnesium Hydroxide (Milk Of Magnesia 30 Ml Oral.Susp) 30 ml PO DAILY PRN PRN Reason: Constipation Last Admin: 01/05/25 09:16 Dose: 30 ml Metronidazole (Metronidazole 500 Mg Tablet) 500 mg PO BID MICKEY Last Admin: 01/06/25 08:03 Dose: 500 mg Mirtazapine (Mirtazapine 7.5 Mg Tablet) 7.5 mg PO BEDTIME MICKEY Last Admin: 01/05/25 20:31 Dose: 7.5 mg Nicotine (Nicotine 14 Mg Patch.Td24) 14 mg TRANSDERMA DAILY PRN PRN Reason: Smoking cessation Nicotine Polacrilex (Nicotine Polacrilex 2 Mg Gum) 2 mg BUCCAL Q2H PRN PRN Reason: Nicotine Cravings Last Admin: 01/06/25 08:19 Dose: 2 mg Olanzapine (Olanzapine 10 Mg Tablet) 10 mg PO BEDTIME MICEKY Last Admin: 01/05/25 20:30 Dose: 10 mg Olanzapine (Olanzapine 2.5 Mg Tablet) 2.5 mg PO BID PRN PRN Reason: agitation Last Admin: 01/04/25 11:43 Dose: 2.5 mg Oxybutynin Chloride (Oxybutynin Chloride Er 5 Mg Tab.Er.24) 5 mg PO DAILY MICKEY Last Admin: 01/06/25 08:03 Dose: 5 mg Polyethylene Glycol (Polyethylene Glycol 3350 17 Gm Powd.Pack) 17 gm PO DAILY PRN PRN Reason: Constipation Last Admin: 01/05/25 09:16 Dose: 17 gm Prazosin HCl (Prazosin Hcl 1 Mg Capsule) 3 mg PO BEDTIME MICKEY; Protocol Last Admin: 01/05/25 20:31 Dose: 3 mg Allergies Allergies Allergy/AdvReac Type Severity Reaction Status Date / Time No Known Allergies Allergy Verified 12/25/24 21:55 Assessment & Plan Assessment & Plan (1) Post traumatic stress disorder: Status: Acute Code(s): F43.10 - Post-traumatic stress disorder, unspecified (2) Bipolar disorder: Status: Acute Code(s): F31.9 - Bipolar disorder, unspecified Plan 01/03/25: CPZ 10 mg hs prn Discharge planning for next week. 01/04/25: Decrease Trazodone to 25 mg HS PRN. Otherwise continue current management and treatment plan. 01/05: DC Trazodone PRN. Try Chlorpromazine 10 mg PRN instead as previously suggested by primary team. Continue current management and treatment plan. 01/06: Continue tx Reason for continued inpatient stay Substantial Risk for: rapid decompensation Time Spent With Patient Time: Total time managing care of this patient today ____ minutes.
[2025-01-06 20:00] VITALS: BP 121/73; PULSE 91; RESP 16; TEMP 36.1; O2SAT 94
[2025-01-06 21:21] VITALS: BP 121/73
[2025-01-07 08:00] VITALS: BP 92/50; PULSE 71; RESP 16; TEMP 36.1; O2SAT 97
[2025-01-07] MEDS: oxyBUTYnin chloride ER 5 MG TAB.ER.24 PO (08:24)
--- NOTE | 2025-01-07 11:12 | HO.PSYCHPN ---
Subjective Subjective Date of Service: 01/07/25 Reason For Visit: PTSD Subjective Notes: Conditional Voluntary Healthcare Proxy: No Guardianship: No Medical Problems Affecting Mental Status: No Interim History: Do you think I am schizophrenic? Discussion of diagnosis, PTSD, Bipolar Disorder, medical issues addressed during this admission and her perception of symptoms. Denies SI,HI,AH,VH. Prepared for discharge on 01/09. Medication Compliance: Yes Side effects from medications: No Attending Groups: Intermittent Review of Systems Acute medical concerns: No Review of Systems Review of Systems Denies Mental Status Exam Mental Status Exam Patient Appearance: Appropriate Patient Orientation: Person, Place, Time and Situation Level of Consciousness: Alert Patient Behavior: Talkative and Good Eye Contact Mood Description: Constricted Affect Description: Constricted Patient Cognition Impaired: No Ability to Follow Directions: Good Speech Pattern: Spontaneous Speech Memory Description: Intact and Episodic Impaired Hallucinations: None Delusions: Not Present Thought Process: Goal Oriented Thought Content: positive for Goal Oriented and positive for Suicidal Ideation (denies) Depressive Symptoms: Increased Anxiety Judgement: Good Diagnostics Vital Signs (24Hr): Vital Signs - 24 hr 01/06/25 20:00 01/06/25 21:21 01/07/25 08:00 Temperature 97.0 F 96.9 F Pulse Rate 91 71 Respiratory Rate 16 16 Blood Pressure 121/73 121/73 92/50 L Pulse Oximetry 94 97 Oxygen Delivery Method Room Air Room Air BMI result Body Mass Index 31.5 Labs 12/25/24 22:19 12/27/24 07:56 Imaging Radiology Impressions: ITS Impressions Retroperitoneum Ultrasound 01/01/25 16:02 IMPRESSION: Unremarkable renal ultrasound. Electronically signed by: Job Villagomez MD 01/01/2025 04:25 PM EDT Medications Medications Current Medications Acetaminophen (Acetaminophen 325 Mg Tablet) 650 mg PO Q6H PRN PRN Reason: Headache/Pain, Scale 1-10 Last Admin: 01/05/25 09:55 Dose: 650 mg Al Hydroxide/Mg Hydroxide (Magnesium Hydrox/Alum Hydrox 30 Ml Oral.Susp) 30 ml PO Q6H PRN PRN Reason: Heartburn/Nausea Benztropine Mesylate (Benztropine Mesylate 1 Mg Tablet) 1 mg PO BEDTIME MICKEY Last Admin: 01/06/25 21:21 Dose: 1 mg Bisacodyl (Bisacodyl 5 Mg Tablet.Dr) 10 mg PO DAILY PRN PRN Reason: Constipation Chlorpromazine HCl (Chlorpromazine Hcl 10 Mg Tablet) 10 mg PO BEDTIME PRN PRN Reason: sleep quality Last Admin: 01/06/25 22:38 Dose: 10 mg Hydroxyzine HCl (Hydroxyzine Hcl 50 Mg Tablet) 50 mg PO Q6H PRN PRN Reason: mild anxiety Last Admin: 01/05/25 09:16 Dose: 50 mg Lorazepam (Lorazepam 0.5 Mg Tablet) 0.5 mg PO BID PRN PRN Reason: Anxiety Last Admin: 01/06/25 22:38 Dose: 0.5 mg Magnesium Hydroxide (Milk Of Magnesia 30 Ml Oral.Susp) 30 ml PO DAILY PRN PRN Reason: Constipation Last Admin: 01/05/25 09:16 Dose: 30 ml Metronidazole (Metronidazole 500 Mg Tablet) 500 mg PO BID MICKEY Last Admin: 01/07/25 08:24 Dose: 500 mg Mirtazapine (Mirtazapine 7.5 Mg Tablet) 7.5 mg PO BEDTIME MICKEY Last Admin: 01/06/25 21:21 Dose: 7.5 mg Nicotine (Nicotine 14 Mg Patch.Td24) 14 mg TRANSDERMA DAILY PRN PRN Reason: Smoking cessation Nicotine Polacrilex (Nicotine Polacrilex 2 Mg Gum) 2 mg BUCCAL Q2H PRN PRN Reason: Nicotine Cravings Last Admin: 01/07/25 11:04 Dose: 2 mg Olanzapine (Olanzapine 10 Mg Tablet) 10 mg PO BEDTIME MICKEY Last Admin: 01/06/25 21:21 Dose: 10 mg Olanzapine (Olanzapine 2.5 Mg Tablet) 2.5 mg PO BID PRN PRN Reason: agitation Last Admin: 01/04/25 11:43 Dose: 2.5 mg Oxybutynin Chloride (Oxybutynin Chloride Er 5 Mg Tab.Er.24) 5 mg PO DAILY MICKEY Last Admin: 01/07/25 08:24 Dose: 5 mg Polyethylene Glycol (Polyethylene Glycol 3350 17 Gm Powd.Pack) 17 gm PO DAILY PRN PRN Reason: Constipation Last Admin: 01/05/25 09:16 Dose: 17 gm Prazosin HCl (Prazosin Hcl 1 Mg Capsule) 3 mg PO BEDTIME MICKEY; Protocol Last Admin: 01/06/25 21:21 Dose: 3 mg Allergies Allergies Allergy/AdvReac Type Severity Reaction Status Date / Time No Known Allergies Allergy Verified 12/25/24 21:55 Assessment & Plan Assessment & Plan (1) Post traumatic stress disorder: Status: Acute Code(s): F43.10 - Post-traumatic stress disorder, unspecified (2) Bipolar disorder: Status: Acute Code(s): F31.9 - Bipolar disorder, unspecified Plan 01/03/25: CPZ 10 mg hs prn Discharge planning for next week. 01/04/25: Decrease Trazodone to 25 mg HS PRN. Otherwise continue current management and treatment plan. 01/05: DC Trazodone PRN. Try Chlorpromazine 10 mg PRN instead as previously suggested by primary team. Continue current management and treatment plan. 01/06: Continue tx 01/07: DC 01/09 Reason for continued inpatient stay Substantial Risk for: stable for discharge Time Spent With Patient Time: Total time managing care of this patient today ____ minutes.
[2025-01-07 19:32] VITALS: BP 125/75; PULSE 114; RESP 16; TEMP 36.6; O2SAT 97
[2025-01-08 08:00] VITALS: BP 108/55; PULSE 92; TEMP 36.6; O2SAT 96
[2025-01-08] MEDS: oxyBUTYnin chloride ER 5 MG TAB.ER.24 PO (08:21)
--- NOTE | 2025-01-08 10:13 | P.PNPSI_ITS ---
Subjective Subjective Date of Service: 01/08/25 Reason For Visit: PTSD Subjective Notes: Conditional Voluntary Healthcare Proxy: No Guardianship: No Medical Problems Affecting Mental Status: No Interim History: Denies SI,HI, AH, VH. No sx of acute mamta, psychosis. Medicine review with pt for prescriptions to be sent which pt is in agreement with. Pt provided with a copy of her results of MRI from [facility] per her request. Medication Compliance: Yes Side effects from medications: No Attending Groups: Intermittent Review of Systems Acute medical concerns: No Review of Systems Review of Systems Denies today Mental Status Exam Mental Status Exam Patient Appearance: Appropriate Patient Orientation: Person, Place, Time and Situation Level of Consciousness: Alert Patient Behavior: Talkative and Good Eye Contact Mood Description: Constricted Affect Description: Constricted Patient Cognition Impaired: No Ability to Follow Directions: Good Speech Pattern: Spontaneous Speech Memory Description: Intact and Episodic Impaired Hallucinations: None Delusions: Not Present Thought Process: Goal Oriented Thought Content: positive for Goal Oriented and positive for Suicidal Ideation (denies) Depressive Symptoms: Increased Anxiety Judgement: Good Diagnostics Vital Signs (24Hr): Vital Signs - 24 hr 01/07/25 19:32 01/08/25 08:00 Temperature 97.9 F 97.9 F Pulse Rate 114 H 92 Respiratory Rate 16 Blood Pressure 125/75 108/55 L Pulse Oximetry 97 96 Oxygen Delivery Method Room Air Room Air BMI result Body Mass Index 31.5 Labs 12/25/24 22:19 12/27/24 07:56 Imaging Radiology Impressions: ITS Impressions Retroperitoneum Ultrasound 01/01/25 16:02 IMPRESSION: Unremarkable renal ultrasound. Electronically signed by: Job Villagomez MD 01/01/2025 04:25 PM EDT Medications Medications Current Medications Acetaminophen (Acetaminophen 325 Mg Tablet) 650 mg PO Q6H PRN PRN Reason: Headache/Pain, Scale 1-10 Last Admin: 01/05/25 09:55 Dose: 650 mg Al Hydroxide/Mg Hydroxide (Magnesium Hydrox/Alum Hydrox 30 Ml Oral.Susp) 30 ml PO Q6H PRN PRN Reason: Heartburn/Nausea Benztropine Mesylate (Benztropine Mesylate 1 Mg Tablet) 1 mg PO BEDTIME MICKEY Last Admin: 01/07/25 20:36 Dose: 1 mg Bisacodyl (Bisacodyl 5 Mg Tablet.Dr) 10 mg PO DAILY PRN PRN Reason: Constipation Chlorpromazine HCl (Chlorpromazine Hcl 10 Mg Tablet) 10 mg PO BEDTIME PRN PRN Reason: sleep quality Last Admin: 01/07/25 20:36 Dose: 10 mg Hydroxyzine HCl (Hydroxyzine Hcl 50 Mg Tablet) 50 mg PO Q6H PRN PRN Reason: mild anxiety Last Admin: 01/07/25 18:38 Dose: 50 mg Lorazepam (Lorazepam 0.5 Mg Tablet) 0.5 mg PO BID PRN PRN Reason: Anxiety Last Admin: 01/06/25 22:38 Dose: 0.5 mg Magnesium Hydroxide (Milk Of Magnesia 30 Ml Oral.Susp) 30 ml PO DAILY PRN PRN Reason: Constipation Last Admin: 01/05/25 09:16 Dose: 30 ml Metronidazole (Metronidazole 500 Mg Tablet) 500 mg PO BID MICKEY Last Admin: 01/08/25 08:21 Dose: 500 mg Mirtazapine (Mirtazapine 7.5 Mg Tablet) 7.5 mg PO BEDTIME MICKEY Last Admin: 01/07/25 20:36 Dose: 7.5 mg Nicotine (Nicotine 14 Mg Patch.Td24) 14 mg TRANSDERMA DAILY PRN PRN Reason: Smoking cessation Nicotine Polacrilex (Nicotine Polacrilex 2 Mg Gum) 2 mg BUCCAL Q2H PRN PRN Reason: Nicotine Cravings Last Admin: 01/08/25 08:39 Dose: 2 mg Olanzapine (Olanzapine 10 Mg Tablet) 10 mg PO BEDTIME MICKEY Last Admin: 01/07/25 20:36 Dose: 10 mg Olanzapine (Olanzapine 2.5 Mg Tablet) 2.5 mg PO BID PRN PRN Reason: agitation Last Admin: 01/04/25 11:43 Dose: 2.5 mg Oxybutynin Chloride (Oxybutynin Chloride Er 5 Mg Tab.Er.24) 5 mg PO DAILY MICKEY Last Admin: 01/08/25 08:21 Dose: 5 mg Polyethylene Glycol (Polyethylene Glycol 3350 17 Gm Powd.Pack) 17 gm PO DAILY PRN PRN Reason: Constipation Last Admin: 01/05/25 09:16 Dose: 17 gm Prazosin HCl (Prazosin Hcl 1 Mg Capsule) 3 mg PO BEDTIME MICKEY; Protocol Last Admin: 01/07/25 20:36 Dose: 3 mg Allergies Allergies Allergy/AdvReac Type Severity Reaction Status Date / Time No Known Allergies Allergy Verified 12/25/24 21:55 Assessment & Plan Assessment & Plan (1) Post traumatic stress disorder: Status: Acute Code(s): F43.10 - Post-traumatic stress disorder, unspecified (2) Bipolar disorder: Status: Acute Code(s): F31.9 - Bipolar disorder, unspecified Plan 01/03/25: CPZ 10 mg hs prn Discharge planning for next week. 01/04/25: Decrease Trazodone to 25 mg HS PRN. Otherwise continue current management and treatment plan. 01/05: DC Trazodone PRN. Try Chlorpromazine 10 mg PRN instead as previously suggested by primary team. Continue current management and treatment plan. 01/06: Continue tx 01/08: DC 01/09 Reason for continued inpatient stay Substantial Risk for: rapid decompensation Time Spent With Patient Time: Total time managing care of this patient today ____ minutes.
[2025-01-08 20:00] VITALS: BP 119/75; PULSE 92; TEMP 36.7; O2SAT 96
[2025-01-08 20:40] VITALS: BP 119/75
[2025-01-09 08:00] VITALS: BP 120/74; PULSE 86; RESP 18; TEMP 36.4; O2SAT 97
[2025-01-09] MEDS: oxyBUTYnin chloride ER 5 MG TAB.ER.24 PO (08:17)
--- NOTE | 2025-01-09 09:40 | HO.PSYCHPN ---
Subjective Subjective Reason For Visit: PTSD Diagnostics Vital Signs (24Hr): Vital Signs - 24 hr 01/08/25 20:00 01/08/25 20:40 01/09/25 08:00 Temperature 98.1 F 97.6 F Pulse Rate 92 86 Respiratory Rate 18 Blood Pressure 119/75 119/75 120/74 Pulse Oximetry 96 97 Oxygen Delivery Method Room Air Room Air BMI result Body Mass Index 31.5 Labs 12/25/24 22:19 12/27/24 07:56 Imaging Radiology Impressions: ITS Impressions Retroperitoneum Ultrasound 01/01/25 16:02 IMPRESSION: Unremarkable renal ultrasound. Electronically signed by: Job Villagomez MD 01/01/2025 04:25 PM EDT RP Medications Medications Current Medications Acetaminophen (Acetaminophen 325 Mg Tablet) 650 mg PO Q6H PRN PRN Reason: Headache/Pain, Scale 1-10 Last Admin: 01/08/25 11:41 Dose: 650 mg Al Hydroxide/Mg Hydroxide (Magnesium Hydrox/Alum Hydrox 30 Ml Oral.Susp) 30 ml PO Q6H PRN PRN Reason: Heartburn/Nausea Benztropine Mesylate (Benztropine Mesylate 1 Mg Tablet) 1 mg PO BEDTIME MICKEY Last Admin: 01/08/25 20:41 Dose: 1 mg Bisacodyl (Bisacodyl 5 Mg Tablet.Dr) 10 mg PO DAILY PRN PRN Reason: Constipation Chlorpromazine HCl (Chlorpromazine Hcl 10 Mg Tablet) 10 mg PO BEDTIME PRN PRN Reason: sleep quality Last Admin: 01/07/25 20:36 Dose: 10 mg Hydroxyzine HCl (Hydroxyzine Hcl 50 Mg Tablet) 50 mg PO Q6H PRN PRN Reason: mild anxiety Last Admin: 01/09/25 08:42 Dose: 50 mg Ibuprofen (Ibuprofen 600 Mg Tablet) 600 mg PO Q6H PRN PRN Reason: Headache Last Admin: 01/08/25 15:24 Dose: 600 mg Lorazepam (Lorazepam 0.5 Mg Tablet) 0.5 mg PO BID PRN PRN Reason: Anxiety Last Admin: 01/06/25 22:38 Dose: 0.5 mg Magnesium Hydroxide (Milk Of Magnesia 30 Ml Oral.Susp) 30 ml PO DAILY PRN PRN Reason: Constipation Last Admin: 01/05/25 09:16 Dose: 30 ml Metronidazole (Metronidazole 500 Mg Tablet) 500 mg PO BID MICKEY Last Admin: 01/09/25 08:16 Dose: 500 mg Mirtazapine (Mirtazapine 7.5 Mg Tablet) 7.5 mg PO BEDTIME MICKEY Last Admin: 01/08/25 20:42 Dose: 7.5 mg Nicotine (Nicotine 14 Mg Patch.Td24) 14 mg TRANSDERMA DAILY PRN PRN Reason: Smoking cessation Nicotine Polacrilex (Nicotine Polacrilex 2 Mg Gum) 2 mg BUCCAL Q2H PRN PRN Reason: Nicotine Cravings Last Admin: 01/09/25 08:40 Dose: 2 mg Olanzapine (Olanzapine 10 Mg Tablet) 10 mg PO BEDTIME MICKEY Last Admin: 01/08/25 20:42 Dose: 10 mg Olanzapine (Olanzapine 2.5 Mg Tablet) 2.5 mg PO BID PRN PRN Reason: agitation Last Admin: 01/08/25 11:41 Dose: 2.5 mg Oxybutynin Chloride (Oxybutynin Chloride Er 5 Mg Tab.Er.24) 5 mg PO DAILY MICKEY Last Admin: 01/09/25 08:17 Dose: 5 mg Polyethylene Glycol (Polyethylene Glycol 3350 17 Gm Powd.Pack) 17 gm PO DAILY PRN PRN Reason: Constipation Last Admin: 01/05/25 09:16 Dose: 17 gm Prazosin HCl (Prazosin Hcl 1 Mg Capsule) 3 mg PO BEDTIME MICKEY; Protocol Last Admin: 01/08/25 20:40 Dose: 3 mg Allergies Allergies Allergy/AdvReac Type Severity Reaction Status Date / Time No Known Allergies Allergy Verified 12/25/24 21:55 Assessment & Plan Assessment & Plan (1) Post traumatic stress disorder: Status: Acute Code(s): F43.10 - Post-traumatic stress disorder, unspecified (2) Bipolar disorder: Status: Acute Code(s): F31.9 - Bipolar disorder, unspecified Plan 01/03/25: CPZ 10 mg hs prn Discharge planning for next week. 01/04/25: Decrease Trazodone to 25 mg HS PRN. Otherwise continue current management and treatment plan. 01/05: DC Trazodone PRN. Try Chlorpromazine 10 mg PRN instead as previously suggested by primary team. Continue current management and treatment plan. 01/06: Continue tx 01/08: DC 01/09 Time Spent With Patient Time: Total time managing care of this patient today ____ minutes.
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
== END 2025-01-09 10:55 | disposition home or self-care (01) | DRG 753 ==
LOC: HO.ED 12-26 09:31 → HO.PM5 12-26 13:37
PROVIDERS: Emergency Medicine; Obstetrics & Gynecology; Admitting Provider Nurse Practitioner Family; Emergency Provider Emergency Medicine Emergency Medical Services; Visit Provider Nurse Practitioner Family
DX: F31.9 Bipolar disorder, unspecified (principal); F17.210 Nicotine dependence, cigarettes, uncomplicated; R32 Unspecified urinary incontinence; F43.10 Post-traumatic stress disorder, unspecified; Z71.6 Tobacco abuse counseling; N76.0 Acute vaginitis; Z91.410 Personal history of adult physical and sexual abuse; Z91.52 Personal history of nonsuicidal self-harm; Z91.51 Personal history of suicidal behavior; Z79.899 Other long term (current) drug therapy
CPT/HCPCS: 36415; 76770; 80053; 80061; 80307; 81001; 81515; 83036; 84443; 84484; 84702; 85025; 86780; 86803; 87086; 87340; 87389; 87491; 87591; 88175; 93005; 95816; 99284; S9485

== ENCOUNTER → 2024-12-25 22:05 | Outpatient (BNV) | payer OTHER, SELFPAY | PROVIDERS: Emergency Provider Emergency Medicine Emergency Medical Services; Visit Provider Internal Medicine Cardiovascular Disease | DX: R94.31 Abnormal electrocardiogram [ECG] [EKG] (principal); R42 Dizziness and giddiness | CPT/HCPCS: 93010 ==

== ENCOUNTER 2024-12-26 12:56 | Outpatient (BNV) | payer OTHER, SELFPAY | END 2025-01-01 16:02 | PROVIDERS: Admitting Provider Nurse Practitioner Family; Emergency Provider Emergency Medicine Emergency Medical Services; Visit Provider Radiology Diagnostic Radiology | DX: R32 Unspecified urinary incontinence (principal) | CPT/HCPCS: 76770 ==

== ENCOUNTER 2024-12-26 12:56 | Outpatient (BNV) | payer OTHER, SELFPAY | END 2025-01-02 12:15 | PROVIDERS: Admitting Provider Nurse Practitioner Family; Emergency Provider Emergency Medicine Emergency Medical Services; Visit Provider Psychiatry & Neurology Neurology | DX: G93.40 Encephalopathy, unspecified (principal) | CPT/HCPCS: 95816 ==

== ENCOUNTER → 2024-12-26 12:56 | Outpatient (BNV) | payer OTHER, SELFPAY | PROVIDERS: Admitting Provider Nurse Practitioner Family; Emergency Provider Emergency Medicine Emergency Medical Services; Visit Provider Urology | DX: F43.10 Post-traumatic stress disorder, unspecified (principal); R32 Unspecified urinary incontinence | CPT/HCPCS: 99222; 99232 ==

== ENCOUNTER → 2024-12-26 12:56 | Outpatient (BNV) | payer OTHER, SELFPAY | PROVIDERS: Admitting Provider Nurse Practitioner Family; Emergency Provider Emergency Medicine Emergency Medical Services; Visit Provider Psychiatry & Neurology Neurology | DX: G93.40 Encephalopathy, unspecified (principal) | CPT/HCPCS: 99223 ==

== ENCOUNTER → 2024-12-26 12:56 | Outpatient (BNV) | payer OTHER, SELFPAY | PROVIDERS: Admitting Provider Nurse Practitioner Family; Emergency Provider Emergency Medicine Emergency Medical Services; Visit Provider Nurse Practitioner Psychiatric/Mental Health | DX: F31.4 Bipolar disorder, current episode depressed, severe, without psychotic features (principal); F43.11 Post-traumatic stress disorder, acute | CPT/HCPCS: 99232 ==

== ENCOUNTER → 2024-12-26 12:56 | Outpatient (BNV) | payer OTHER, SELFPAY | PROVIDERS: Admitting Provider Nurse Practitioner Family; Emergency Provider Emergency Medicine Emergency Medical Services; Visit Provider Obstetrics & Gynecology | DX: Z11.3 Encounter for screening for infections with a predominantly sexual mode of transmission (principal); N39.498 Other specified urinary incontinence; R15.9 Full incontinence of feces | CPT/HCPCS: 99221 ==

== ENCOUNTER → 2025-02-07 13:00 | Outpatient (BNV) | payer OTHER, SELFPAY | PROVIDERS: Visit Provider Psychiatry & Neurology Psychiatry | DX: F31.9 Bipolar disorder, unspecified (principal); F43.10 Post-traumatic stress disorder, unspecified; F14.91 Cocaine use, unspecified, in remission; F11.91 Opioid use, unspecified, in remission; F90.9 Attention-deficit hyperactivity disorder, unspecified type | CPT/HCPCS: 99499 ==

== ENCOUNTER → 2025-03-07 12:24 | Outpatient (REF) | payer OTHER, SELFPAY ==
--- NOTE | 2025-03-07 12:30 | ECG_ITS ---
Test Reason : CHECK QT Blood Pressure : */* mmHG Vent. Rate : 89 BPM Atrial Rate : 89 BPM P-R Int : 162 ms QRS Dur : 76 ms QT Int : 366 ms P-R-T Axes : 62 34 52 degrees QTcB Int : 445 ms Normal sinus rhythm Normal ECG When compared with ECG of 25-Dec-2024 22:10, Nonspecific T wave abnormality no longer evident in Inferior leads Nonspecific T wave abnormality no longer evident in Anterolateral leads Referred By: Priscila Yeung Electronically Signed By: DIRK LUTZ MD
[2025-03-07 12:51] LABS: MANUAL DIFF FLAG NO
[2025-03-07 13:13] LABS: Hematocrit 40.7 % (37.0-47.0); Hemoglobin 13.9 g/dl (12.0-16.0); Imm Gran Abs Auto 0.01 X10*3/uL (0.00-0.03); Imm Gran Pct Auto 0.1 % (0.0-0.4); Lymphocytes Absolute Auto 2.8 X10*3/uL (1.2-4.9); Mean Corpuscular HGB Conc 34.2 g/dl (31.0-35.0); Mean Corpuscular Hemoglobin 30.1 pg (27.0-33.0); Mean Corpuscular Volume 88.1 fL (80.0-98.0); NRBC Abs Auto 0.000 X10*3/uL (0.0-0.012); NRBC Pct Auto 0.0 /100WBC (0.0-0.2); Platelet Count 295 X10*3/uL (160-400); Red Blood Count 4.62 X10*6/uL (4.20-5.50); White Blood Count 8.5 X10*3/uL (4.8-10.8)
[2025-03-07 13:34] LABS: Appearance Urine Clear; Glucose Urine UA Negative (Negative); PH 7.0 (5.0-9.0); Specific Gravity - Urine <= 1.005 (1.005-1.025)
[2025-03-07 13:59] LABS: Alanine Aminotransferase 27 U/L (0-31); Albumin Level 5.3 g/dL (3.5-5.0); Alkaline Phosphatase 61 U/L (39-117); Anion Gap 11 (12-20); Aspartate Amino Transferase 21 U/L (5-31); Blood Urea Nitrogen 12 mg/dL (9-16); Calcium 9.8 mg/dL (8.4-10.2); Carbon Dioxide 23 mmol/L (22-29); Chloride 108 mmol/L (96-108); Cholesterol 245 mg/dL (<200); Estimated Glomerular Filt Rate > 60; Free T4 (Free Thyroxine) 0.95 ng/dL (0.71-1.85); Iron 91 mcg/dL (30-160); Magnesium 2.1 mg/dL (1.6-2.6); Percent Iron Saturation 26 % (15-50); Potassium 3.9 mmol/L (3.3-5.1); Sodium 138 mmol/L (135-145); Thyroid Stimulating Hormone 0.69 uIU/mL (0.32-4.0); Total Iron Binding Capacity 349 mcg/dL (228-428); Total Protein 7.5 g/dL (6.5-8.0); Unsaturated Iron Binding 258 ug/dL
[2025-03-07 14:17] LABS: Folate 9.8 ng/mL (> or = 4.0); Vitamin B12 240 pg/mL (200-900)
== END ==
LOC: HO.CARD 12:24
PROVIDERS: PCP Nurse Practitioner Family; Visit Provider Psychiatry & Neurology Psychiatry
DX: Z13.6 Encounter for screening for cardiovascular disorders (principal); F41.1 Generalized anxiety disorder; F39 Unspecified mood [affective] disorder
CPT/HCPCS: 36415; 80053; 81003; 82306; 82465; 82607; 82746; 83036; 83090; 83540; 83735; 84425; 84439; 84443; 85025; 85652; 93005

== ENCOUNTER → 2025-03-07 12:30 | Outpatient (BNV) | payer MEDICAID, SELFPAY | PROVIDERS: PCP Nurse Practitioner Family; Visit Provider Internal Medicine Cardiovascular Disease | DX: Z13.6 Encounter for screening for cardiovascular disorders (principal) | CPT/HCPCS: 93010 ==

== ENCOUNTER 2025-03-14 12:15 | Outpatient (RCR) | payer OTHER, SELFPAY ==
[2025-01-30 11:28] VITALS: BP 110/70; PULSE 84; TEMP 37.1; BMI 31.9
--- NOTE | 2025-01-30 13:33 | HO.PHP ---
At roughly 10 am during group therapy, Annia's dog which pt identifies as a service dog barked and growled loudly and suddenly in group. Prior to this pt was sitting on the floor during group with her dog (named Huseyin), pt was calm and dog was sitting attentively next to Annia as she fed him treats to keep his attention. Pt's dog was sitting or laying calmly for parts of the group, but pt's dog also got up to move around frequently in response to external noises outside of room. Fork through group pt's dog barked loudly and suddenly then growled requiring Annia to pull his leash toward her as she spoke commands to calm him, pt stepped out of group immediately with her dog. When pt left, group members sighed, expressed the bark frightened then, increased anxiety and caused them to jump. Pt returned about 5 minutes later, apologized to group members, stated her dog was responding to the shadow under the dog. Stated he is trained to alert her to people. Pt's dog had difficulty not reacting to movements in group and to the sound of the door and to people walking outside the window, eg. got up, moving toward the sound, requiring Annia to feed him treats throughout group and repeatedly repositioning him towards her. Pt did well attempting to keep him under her control since the was not able to ignore many distractions without prompts from Annia. Pt was able to keep him from barking for the remainder of group, the dog was able to lay down when the room was quiet, as peers spoke and there where no other distractions. This was reported to [facility] staff and tire service supervisor via [facility].
--- NOTE | 2025-01-30 13:43 | PC.ADMIT ---
Patient is a 29 year old female who was referred to [facility] by [facility] where patient was admitted from 01/13/25-01/28/25 d/t PTSD and anxiety sxs. Prior to being at [facility] patient was [place] [facility] [place] [facility] from 12/26/24-01/09/25. Patient reports I fainted December 26, 2024. It was probably because I took the Prazosin 7 mg and have not taken it in a while is my guess. Patient stated her friend brought her to the hospital. Patient stated she was admitted for PTSD sxs afterwards. Denied AH or VH. Patient stated, When PTSD kicks up in my head I'm in a basement. Patient reports history of trauma and dissociation. Patient has her service dog with her. She stated her service dog is for her PTSD disability. Patient is alert and oriented x4. She is calm and cooperative. She presented with depressed mood and anxious affect. She denied SI or thoughts to harm herself. Patient reports a history of self harm by cutting her wrists. She reports she last self harmed 6 weeks ago. She stated she self harms when she is in emotional pain. Patient received a copy of her safety plan if needed. Patient reports history of polysubstance use including IV heroin, intranasal cocaine, Alcohol use, Hallucinogens, and marijuana use. Patient denied any current substance use. Patient reports she has a sponsor and is considering going back to . Patient reports history of being on Vivitrol however reports she has not had this medication for two years. Patients medications updated with patient, current prescription bottles patient brought in, and discharge paperwork form [facility] from 01/28/25. Patient stated she did not receive prescriptions for Mirtazapine and Olanzapine, and Benzotropine. I called the pharmacy and they stated that they did not fill the Olanzapine 5 mg tab Q 6 hrs prn as insurance will only cover three tabs. Last filled Mirtazapine 7.5 mg on 01/08/25 # 30 and Benzotropine 1 mg at [facility] filled on 01/08/25 # 30 thus both prescriptions were too early to fill. I asked patient and she stated she has a few tabs left of each prescription. Dr Krishnan is aware of above medication information.
--- NOTE | 2025-01-30 16:00 | HO.PHP ---
Clients case was open and reviewed in teams.
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
--- NOTE | 2025-02-03 13:17 | HO.PHP ---
PHP staff member faxed over a referral for med management and is awaiting on referral dates and times.
--- NOTE | 2025-02-07 19:03 | P.PNPSP_ITS ---
Subjective Subjective Date of Service: 02/07/25 Reason For Visit: bipolar Interim History: Everyday is different Presents as organized, calmer and more engaged. With service dog technician inventory specialist. Has been taking bump up in olanzapine to 12.5 mg qhs which has been helpful with sleep as well as mood and anxiety. Stopped taking mirtazapine after 2 nights due to losing time and some disorientation that lasted into the day time. didnt feel right . Not taking trazodone because doesnt help with sleep. Otherwise medication compliant. Denies any other AE. Main complaints related to long standing struggles with ADHD. Has taken Ritalin in the past which she did well on. History of cocaine use, which she says was helpful with these symptoms, and helpful for anxiety. Last reported use Feb 2022. (Urine tox screen x1 11/2024 was negative for all substances). Reports casual cannabis use, last smoked weed last week. Denies any alcohol or other illicit substance use at this time. We discussed trial of Vyvanse, may need to consider increasing prazosin vs switcghing to a short acting stimulant if Vyvanse interfers with sleep. Medication Compliance: Yes Side effects from medications: No Attending Groups: Yes Review of Systems Acute medical concerns: No Mental Status Exam Mental Status Exam Narrative: Alert, oriented, in no acute distress. Calm, cooperative, engaged. No psychomotor agitation or neurovegetative retardation. Eye contact maintained. Mood anxious, affect variable, mood congruent. Speech normal. Thought process linear, coherent. Thought content related to stressors, executive dysfunction, issues with planning/focus, denies any hopelessness or SI. Denies any aggressive ideation or HI. No paranoia or delusional content elicited. No evidence of psychosis. Insight and judgment - fair but adequate. Diagnostics Vital Signs (24Hr): BMI result Body Mass Index 31.9 Assessment & Plan Assessment & Plan (1) Bipolar disorder: Status: Acute Code(s): F31.9 - Bipolar disorder, unspecified (2) Post traumatic stress disorder: Status: Acute Code(s): F43.10 - Post-traumatic stress disorder, unspecified (3) Cocaine use disorder in remission: Status: Acute Code(s): F14.91 - Cocaine use, unspecified, in remission (4) Opioid use disorder in remission: Status: Acute Code(s): F11.91 - Opioid use, unspecified, in remission (5) Attention and concentration deficit: Status: Acute Code(s): R41.840 - Attention and concentration deficit Plan continue PHP start Vyvanse 10 mg qam continue ABilify 15 mg qam continue Zyprexa 10 mg qhs continue Zyprexa 2.5 mg BID agitation/sleep continue prazosin 2 mg qhs continue Zoloft 50 mg qd discontinue mirtazapine discontinue trazodone (ineffective) continue lorazepam 0.5 mg BID prn anxiety continue hydroxyzine 50 mg q4hr prn continue benztropine 1 mg qhs continue other regular medications - nicorette gum, atorvastatin, sumatriptan prn, fluticasone BID, cetirizine Routine lab work as indicated EKG, routine for baseline QTc for medication considerations as indicated UDS as indicated MassPat reviewed Continue to monitor as per protocol Patient educated on: diagnosis, medication risk/benefits and substance abuse Informed Consent: understands Reason for contiued partial hosp. stay Substantial Risk for: inability to function, rapid decompensation and med/psych decompensation Certification I certify that partial hospital treatment is medically necessary due to the symptoms and problems resulting from the patient's mental illness and the failure to treat the patient at the partial hospital level of care would likely result in the patient requiring inpatient psychiatric care which could not be prevented at a less intensive level of care. Total time managing care of this patient today __30__ minutes. Discharge Plan Discharge Attending provider: Priscila Yeung Medications: New olanzapine 5 mg tablet 5 mg PO BID Qty: 30 0RF nicotine 21 mg/24 hr patch 24 hour 1 patch transdermal DAILY Qty: 14 0RF Rx Instructions: apply patch daily in AM and remove every night nicotine (polacrilex) [Nicorette] 2 mg gum 2 mg buccal Q2H Qty: 50 0RF lisdexamfetamine 10 mg capsule 10 mg PO QAM Qty: 14 0RF Rx Instructions: Partial Fill upon patient request. For ADHD. Continued sennosides-docusate sodium 8.6-50 mg Tablet 1 tab-cap PO BID atorvastatin 40 mg Tablet 40 mg PO BEDTIME Qty: 14 0RF cetirizine 10 mg Tablet 10 mg PO BEDTIME Qty: 14 0RF sumatriptan succinate [Imitrex] 25 mg Tablet 25 mg PO Q2H PRN (Reason: Migraine Headache) Qty: 30 0RF Rx Instructions: do not exceed 8 doses per 24 hrs lorazepam 0.5 mg Tablet 0.5 mg PO BID PRN (Reason: Anxiety) Qty: 14 4RF trazodone 100 mg Tablet 100 mg PO BEDTIME Qty: 14 0RF benztropine 1 mg Tablet 1 mg PO BEDTIME Qty: 14 0RF Rx Instructions: Last filled 01/08/25 #30. fluticasone propionate 50 mcg/actuation [place],Suspension 1 spray INTRANASAL BID Qty: 16 0RF Rx Instructions: administer 1 spray into each nostril sertraline 50 mg Tablet 50 mg PO DAILY Qty: 14 0RF prazosin 2 mg Capsule 2 mg PO BEDTIME Qty: 14 0RF aripiprazole 15 mg Tablet 15 mg PO DAILY Qty: 14 0RF mirtazapine 7.5 mg Tablet 7.5 mg PO BEDTIME Qty: 30 0RF Rx Instructions: Last filled 01/08/25 #30. Changed hydroxyzine HCl 50 mg tablet 50 mg PO Q4H PRN (Reason: Anxiety) Qty: 30 0RF Discontinued olanzapine 5 mg Tablet 5 mg PO Q6H PRN (Reason: Psychosis) Patient Comments: Pharmacy stated insurance will not fill for 4 tabs only [address] Yeung. Stand Alone Forms: Patient Portal Discharge page Print Language: Serbian
[2025-02-13 14:51] LABS: Cannabinoid Screen Urine Not Detected (Not Detect)
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
--- NOTE | 2025-02-13 23:56 | P.PNPSP_ITS ---
Subjective Subjective Date of Service: 02/13/25 Reason For Visit: bipolar Interim History: Noting a slight difference on Vyvanse so far at 10 mg. No side effects. She is supposed to be seeing a neuropsychologist for head trauma. forgetfulness. Says she is waking up not in control . Eating in the middle of the night. Reports this as sleep walking but does retain a vague memory of doing this (and could also just be she is sedated from taking 10 mg olanzapine at bedtime. Stopped tra zodone. Occasional nightmares even with prazosin 2 mg. No lighheadedness. She had accidentally been taking 4 mg for 2 nights, no adverse effects. DId not experience any nightmares those 2 nights although was out of it . We agree to move up to 3 mg at night for now. Will add topiramate 25 mg at night for anxiety, sleep, curb food cravings. Increase Vyvanse to 20 mg. Medication Compliance: Yes Side effects from medications: No Attending Groups: Yes Review of Systems Acute medical concerns: No Mental Status Exam Mental Status Exam Narrative: Alert, oriented, in no acute distress. Calm, cooperative, engaged. No psychomotor agitation or neurovegetative retardation. Eye contact maintained. Mood anxious, affect variable, mood congruent. Speech normal. Thought process linear, coherent. Thought content related to stressors, executive dysfunction, issues with planning/focus, denies any hopelessness or SI. Denies any aggressive ideation or HI. No paranoia or delusional content elicited. No evidence of psychosis. Insight and judgment - fair but adequate. Diagnostics Vital Signs (24Hr): BMI result Body Mass Index 31.9 Assessment & Plan Assessment & Plan (1) Bipolar disorder: Status: Acute Code(s): F31.9 - Bipolar disorder, unspecified (2) Post traumatic stress disorder: Status: Acute Code(s): F43.10 - Post-traumatic stress disorder, unspecified (3) Cocaine use disorder in remission: Status: Acute Code(s): F14.91 - Cocaine use, unspecified, in remission (4) Opioid use disorder in remission: Status: Acute Code(s): F11.91 - Opioid use, unspecified, in remission (5) Attention-deficit hyperactivity disorder, unspecified type: Status: Acute Code(s): F90.9 - Attention-deficit hyperactivity disorder, unspecified type Plan continue PHP increase Vyvanse to 20 mg qam start topiramate 25 mg qhs continue ABilify 15 mg qam continue Zyprexa 10 mg qhs continue Zyprexa 2.5 mg BID PRN sleep/manic sx/agitation/anxiety increase prazosin to 3 mg qhs continue Zoloft 50 mg qd discontinue trazodone 100 mg qhs continue lorazepam 0.5 mg BID prn anxiety continue hydroxyzine 50 mg q4hr prn continue benztropine 1 mg qhs continue NRT gum continue other regular medications - atorvastatin, sumatriptan prn, fluticasone BID, cetirizine continue other regular medications Routine lab work as indicated EKG, routine for baseline QTc for medication considerations as indicated UDS as indicated MassPat reviewed Continue to monitor Patient educated on: diagnosis Informed Consent: understands Reason for contiued partial hosp. stay Substantial Risk for: inability to function, rapid decompensation and med/psych decompensation Certification I certify that partial hospital treatment is medically necessary due to the symptoms and problems resulting from the patient's mental illness and the failure to treat the patient at the partial hospital level of care would likely result in the patient requiring inpatient psychiatric care which could not be prevented at a less intensive level of care. Total time managing care of this patient today __30__ minutes. Discharge Plan Discharge Attending provider: Priscila Yeung Medications: New olanzapine 5 mg tablet 5 mg PO BID Qty: 30 0RF nicotine 21 mg/24 hr patch 24 hour 1 patch transdermal DAILY Qty: 14 0RF Rx Instructions: apply patch daily in AM and remove every night lisdexamfetamine 10 mg capsule 10 mg PO QAM Qty: 14 0RF Rx Instructions: Partial Fill upon patient request. For ADHD. lisdexamfetamine 20 mg capsule 20 mg PO QAM Qty: 14 0RF Rx Instructions: Partial Fill upon patient request. topiramate 25 mg tablet 25 - 50 mg PO BEDTIME PRN (Reason: sleep) Qty: 30 0RF Continued sennosides-docusate sodium 8.6-50 mg Tablet 1 tab-cap PO BID atorvastatin 40 mg Tablet 40 mg PO BEDTIME Qty: 14 0RF cetirizine 10 mg Tablet 10 mg PO BEDTIME Qty: 14 0RF sumatriptan succinate [Imitrex] 25 mg Tablet 25 mg PO Q2H PRN (Reason: Migraine Headache) Qty: 30 0RF Rx Instructions: do not exceed 8 doses per 24 hrs lorazepam 0.5 mg Tablet 0.5 mg PO BID PRN (Reason: Anxiety) Qty: 14 4RF trazodone 100 mg Tablet 100 mg PO BEDTIME Qty: 14 0RF benztropine 1 mg Tablet 1 mg PO BEDTIME Qty: 14 0RF Rx Instructions: Last filled 01/08/25 #30. fluticasone propionate 50 mcg/actuation [place],Suspension 1 spray INTRANASAL BID Qty: 16 0RF Rx Instructions: administer 1 spray into each nostril sertraline 50 mg Tablet 50 mg PO DAILY Qty: 14 0RF prazosin 2 mg Capsule 2 mg PO BEDTIME Qty: 14 0RF aripiprazole 15 mg Tablet 15 mg PO DAILY Qty: 14 0RF mirtazapine 7.5 mg Tablet 7.5 mg PO BEDTIME Qty: 30 0RF Rx Instructions: Last filled 01/08/25 #30. nicotine (polacrilex) [Nicorette] 2 mg gum 2 mg buccal Q2H Qty: 100 0RF Changed hydroxyzine HCl 50 mg tablet 50 mg PO Q4H PRN (Reason: Anxiety) Qty: 30 0RF Discontinued olanzapine 5 mg Tablet 5 mg PO Q6H PRN (Reason: Psychosis) Patient Comments: Pharmacy stated insurance will not fill for 4 tabs only [address] Yeung. Stand Alone Forms: Patient Portal Discharge page Print Language: Hungarian
--- NOTE | 2025-02-19 09:32 | PC.NURSE ---
Annia did not show up to the program this morning. I called Marisa seth f/u and left her a message to call me back.
--- NOTE | 2025-02-19 09:39 | PC.NURSE ---
Annia called back and stated she has a vet appointment today that she forgot about and will be here tomorrow.
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
--- NOTE | 2025-02-24 08:48 | HO.PHP ---
Annia is not scheduled today due to a medical appointment.
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
--- NOTE | 2025-02-26 19:58 | P.PNPSP_ITS ---
Subjective Subjective Date of Service: 02/25/25 Reason For Visit: bipolar Interim History: Patient seen for follow-up Has not been sleeping. Was taken off olanzapine (due to hx of weight gain on olanzapine but couldnt sleep and after 2 days had to restart olanzapine. CUrrently taking 10 mg and sleeping. She has now been off Abilify for a week. Feeling so derpssed . Transient passive SI, some inutrsive thoughts. Wants to get back on . Query tolerance issues at higher doses. Will restart Abilify at 7.5 mg for now and titrate up in smaller increments. She is taking Vyvanse at 20 mg and finds this helpful while it lasts. Medication Compliance: Yes Side effects from medications: No Attending Groups: Yes Review of Systems Acute medical concerns: No Mental Status Exam Mental Status Exam Narrative: presents with support dog- Patient Appearance: Well Grooomed and Appropriate Patient Orientation: Person, Place, Time and Situation Level of Consciousness: Awake Patient Behavior: Appropriate Mood Description: Depressed Affect Description: Constricted and Anxious Patient Cognition Impaired: No Ability to Follow Directions: Good Speech Pattern: Clear Hallucinations: None Delusions: Not Present Thought Process: Intact Thought Content: positive for Circumstantial Judgement: Fair Diagnostics Vital Signs (24Hr): BMI result Body Mass Index 31.9 Assessment & Plan Assessment & Plan (1) Bipolar disorder: Status: Acute Code(s): F31.9 - Bipolar disorder, unspecified (2) Post traumatic stress disorder: Status: Acute Code(s): F43.10 - Post-traumatic stress disorder, unspecified (3) Cocaine use disorder in remission: Status: Acute Code(s): F14.91 - Cocaine use, unspecified, in remission (4) Opioid use disorder in remission: Status: Acute Code(s): F11.91 - Opioid use, unspecified, in remission (5) Attention-deficit hyperactivity disorder, unspecified type: Status: Acute Code(s): F90.9 - Attention-deficit hyperactivity disorder, unspecified type Plan continue olanzapine 10 mg qhs restart Abilify at 7.5 mg qam and may add additional 2 mg if needed in afternoon continue Vyvanse at 20 mg qam Patient educated on: diagnosis and medication risk/benefits Informed Consent: understands Reason for contiued partial hosp. stay Substantial Risk for: inability to function, rapid decompensation and med/psych decompensation Certification I certify that partial hospital treatment is medically necessary due to the symptoms and problems resulting from the patient's mental illness and the failure to treat the patient at the partial hospital level of care would likely result in the patient requiring inpatient psychiatric care which could not be prevented at a less intensive level of care. Total time managing care of this patient today ____ minutes. Discharge Plan Discharge Attending provider: Priscila Yeung Medications: New topiramate 25 mg tablet 25 - 50 mg PO BEDTIME PRN (Reason: sleep) Qty: 30 0RF aripiprazole 15 mg tablet 15 mg PO DAILY 14 Days Qty: 14 0RF aripiprazole 2 mg tablet 2 mg PO DAILY Qty: 30 0RF Continued sennosides-docusate sodium 8.6-50 mg Tablet 1 tab-cap PO BID atorvastatin 40 mg Tablet 40 mg PO BEDTIME Qty: 14 0RF sumatriptan succinate [Imitrex] 25 mg Tablet 25 mg PO Q2H PRN (Reason: Migraine Headache) Qty: 30 0RF Rx Instructions: do not exceed 8 doses per 24 hrs lorazepam 0.5 mg Tablet 0.5 mg PO BID PRN (Reason: Anxiety) Qty: 14 4RF trazodone 100 mg Tablet 100 mg PO BEDTIME Qty: 14 0RF fluticasone propionate 50 mcg/actuation [place],Suspension 1 spray INTRANASAL BID Qty: 16 0RF Rx Instructions: administer 1 spray into each nostril prazosin 2 mg Capsule 2 mg PO BEDTIME Qty: 14 0RF cetirizine 10 mg Tablet 10 mg PO BEDTIME Qty: 30 0RF benztropine 1 mg Tablet 1 mg PO BEDTIME Qty: 30 0RF Rx Instructions: Last filled 01/08/25 #30. sertraline 50 mg Tablet 50 mg PO DAILY Qty: 30 0RF lisdexamfetamine 20 mg capsule 20 mg PO QAM Qty: 14 0RF Rx Instructions: Partial Fill upon patient request. nicotine (polacrilex) 4 mg gum 4 mg buccal Q2-4H PRN (Reason: nicotine cravings) Qty: 100 0RF Changed hydroxyzine HCl 50 mg tablet 50 mg PO Q4H PRN (Reason: Anxiety) Qty: 30 0RF Discontinued mirtazapine 7.5 mg Tablet 7.5 mg PO BEDTIME Qty: 30 0RF Rx Instructions: Last filled 01/08/25 #30. olanzapine 5 mg Tablet 5 mg PO Q6H PRN (Reason: Psychosis) Patient Comments: Pharmacy stated insurance will not fill for 4 tabs only [address] Yeung. aripiprazole 15 mg Tablet 15 mg PO DAILY Stand Alone Forms: Patient Portal Discharge page Print Language: Ethiopian
--- NOTE | 2025-03-03 08:47 | HO.PHP ---
Annia is not scheduled for program today.
--- NOTE | 2025-03-07 12:07 | HO.PHPPROGNO ---
Subjective Subjective Date of Service: 03/07/25 Reason For Visit: bipolar Interim History: Patient seen for follow-up, anticipating discharge at the end of program today.? I'm good. I feel good. No mamta. My neck is better . Patient completed 24 hours urine (apprx 3 L) is polyuric, pending labwork. Urine osmolality low with normal serum osmolality. We discussed plan to return to [facility] to address lithium, given emerging diabete insipidus and considering transitioning away from lithium which patient was happy about as this was one of her primary complaints when she started at [facility] due to weight gain concerns from lithium. 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 She is tolerating 7.5 mg split (4.5/3) with Cogentin now at 1 mg BID. We included her mother Emily ([phone]) I also discussed with her psych provider Radha Pires ([phone])who was on board as she has been hoping to get her off lithium at some point as well, and agreed with plan to transition onto oxcarbazepine. Reports no acute issues or concerns. Medication compliant, medications well-tolerated. Denies any adverse effects.? Mood is stable.? Denies any hopelessness or SI. Denies thoughts of harming self or others at this time. Denies any aggressive ideation or HI. Denies any paranoia or AH or VH. Sleep, appetite, energy stable. Medication Compliance: Yes Side effects from medications: Yes (as noted above) Attending Groups: Yes Review of Systems Acute medical concerns: Yes patient encouraged to maintain hydration due to hypotension likely 2/t volume depletion/polyuria (DI) Mental Status Exam Mental Status Exam Narrative: Alert, oriented, in no acute distress. Calm, cooperative. Mood stable, affect appropriate. Speech normal. Thought process linear, coherent, more goal-directed. Thought content related to stressors, future-oriented, denies any helplessness, hopelessness or SI.? No aggressive ideation or HI. No paranoia or delusional content elicited. No evidence of psychosis. Insight and judgment fair-good. Diagnostics Vital Signs (24Hr): BMI result Body Mass Index 31.9 Assessment & Plan Assessment & Plan (1) Bipolar disorder: Status: Acute Code(s): F31.9 - Bipolar disorder, unspecified (2) Post traumatic stress disorder: Status: Acute Code(s): F43.10 - Post-traumatic stress disorder, unspecified (3) Cocaine use disorder in remission: Status: Acute Code(s): F14.91 - Cocaine use, unspecified, in remission (4) Opioid use disorder in remission: Status: Acute Code(s): F11.91 - Opioid use, unspecified, in remission (5) Attention-deficit hyperactivity disorder, unspecified type: Status: Acute Code(s): F90.9 - Attention-deficit hyperactivity disorder, unspecified type Plan Discharge from [facility] Patient will be returning to [facility] for continued medication management Spoke with patient's mother and psychiatrist to review plan. Patient is in agreement with plan. Continue regular medications? Refills sent to pharmacy Will defer further medication management to outpatient provider *Safety plan reviewed *Discharge diagnoses, treatment course, discharge plan have been reviewed with patient (including medication regime, medication management, potential side effects) as well as treatment rationale were also revisited *Discharge paperwork signed and given to patient, copy sent for scanning to chart Patient educated on: diagnosis and medication risk/benefits Informed Consent: understands Reason for contiued partial hosp. stay Substantial Risk for: stable for discharge Certification I certify that partial hospital treatment is medically necessary due to the symptoms and problems resulting from the patient's mental illness and the failure to treat the patient at the partial hospital level of care would likely result in the patient requiring inpatient psychiatric care which could not be prevented at a less intensive level of care. Total time managing care of this patient today _30___ minutes. Discharge Plan Discharge Attending provider: Priscila Yeung Medications: New topiramate 25 mg tablet 25 - 50 mg PO BEDTIME PRN (Reason: sleep) Qty: 30 0RF aripiprazole 15 mg tablet 15 mg PO DAILY 14 Days Qty: 14 0RF aripiprazole 2 mg tablet 2 mg PO DAILY Qty: 30 0RF gabapentin 300 mg capsule 300 - 600 mg PO BEDTIME PRN (Reason: sleep) Qty: 30 0RF lisdexamfetamine 30 mg capsule 30 mg PO QAM Qty: 30 0RF Rx Instructions: Partial Fill upon patient request. Continued sennosides-docusate sodium 8.6-50 mg Tablet 1 tab-cap PO BID atorvastatin 40 mg Tablet 40 mg PO BEDTIME Qty: 14 0RF sumatriptan succinate [Imitrex] 25 mg Tablet 25 mg PO Q2H PRN (Reason: Migraine Headache) Qty: 30 0RF Rx Instructions: do not exceed 8 doses per 24 hrs lorazepam 0.5 mg Tablet 0.5 mg PO BID PRN (Reason: Anxiety) Qty: 14 4RF trazodone 100 mg Tablet 100 mg PO BEDTIME Qty: 14 0RF fluticasone propionate 50 mcg/actuation [place],Suspension 1 spray INTRANASAL BID Qty: 16 0RF Rx Instructions: administer 1 spray into each nostril prazosin 2 mg Capsule 2 mg PO BEDTIME Qty: 14 0RF cetirizine 10 mg Tablet 10 mg PO BEDTIME Qty: 30 0RF benztropine 1 mg Tablet 1 mg PO BEDTIME Qty: 30 0RF Rx Instructions: Last filled 01/08/25 #30. nicotine (polacrilex) 4 mg gum 4 mg buccal Q2-4H PRN (Reason: nicotine cravings) Qty: 100 0RF Changed hydroxyzine HCl 50 mg tablet 50 mg PO Q4H PRN (Reason: Anxiety) Qty: 30 0RF sertraline 50 mg Tablet 75 mg PO DAILY Qty: 45 0RF Discontinued mirtazapine 7.5 mg Tablet 7.5 mg PO BEDTIME Qty: 30 0RF Rx Instructions: Last filled 01/08/25 #30. olanzapine 5 mg Tablet 5 mg PO Q6H PRN (Reason: Psychosis) Patient Comments: Pharmacy stated insurance will not fill for 4 tabs only [address] Yeung. aripiprazole 15 mg Tablet 15 mg PO DAILY Stand Alone Forms: Patient Portal Discharge page Patient Education: PTSD (Post Traumatic Stress Disorder) (ED), PTSD (Post Traumatic Stress Disorder) (DC) Print Language: Cameroonian
--- NOTE | 2025-03-11 16:39 | P.PNPSP_ITS ---
Subjective Subjective Date of Service: 03/11/25 Reason For Visit: bipolar Interim History: Reports mood feeling down today, reflceting on losses, just heartbroken and grieving loss of my friend . Sometimes I just get really sad when I miss people... like I'm doing better in some ways, I can manage some things but it's like I have a functioning depression... even when I'm manic I'm depressed. Vyvanse has been helpful, she notices that she can stay on task better and therefore less ruminiative when ADHD is treated. Dose is at 30 mg and is well- toerlated. Denies any CTAH, says she can hear my own voice in my head denies any SI. Denies any alcohol or substance use or cravings aside form nicotine cravings, requesting nicorette gum. Medication Compliance: Yes Side effects from medications: No Attending Groups: Yes Review of Systems Acute medical concerns: No Diagnostics Vital Signs (24Hr): BMI result Body Mass Index 31.9 Assessment & Plan Assessment & Plan (1) Bipolar disorder: Status: Acute Code(s): F31.9 - Bipolar disorder, unspecified (2) Post traumatic stress disorder: Status: Acute Code(s): F43.10 - Post-traumatic stress disorder, unspecified (3) Cocaine use disorder in remission: Status: Acute Code(s): F14.91 - Cocaine use, unspecified, in remission (4) Opioid use disorder in remission: Status: Acute Code(s): F11.91 - Opioid use, unspecified, in remission (5) Attention-deficit hyperactivity disorder, unspecified type: Status: Acute Code(s): F90.9 - Attention-deficit hyperactivity disorder, unspecified type Plan cont PHP cont ABilify 15 mg qam continue Abilify 2 mg qd prn agitation will cont Vyvanse at 30 mg qam taper off Zyprexa increase gabapentin to 600-900 mg qhs cont prazosin 2 mg qhs increase Zoloft to 75 mg qd cont trazodone 100 mg qhs cont hydroxyzine 50-100 mg qhs prn sleep cont topiramate 25-50 mg qhs prn sleep cont lorazepam 0.5 mg BID prn anxiety cont benztropine 1 mg qhs add NRT gum continue other regular medications - atorvastatin, sumatriptan prn, fluticasone BID, cetirizine Routine lab work as indicated VS reviewed: afebrile, BP 110/70;?84 bpm Continue to monitor Patient educated on: diagnosis, medication risk/benefits and substance abuse Informed Consent: understands Reason for contiued partial hosp. stay Substantial Risk for: med/psych decompensation Certification I certify that partial hospital treatment is medically necessary due to the symptoms and problems resulting from the patient's mental illness and the failure to treat the patient at the partial hospital level of care would likely result in the patient requiring inpatient psychiatric care which could not be prevented at a less intensive level of care. Total time managing care of this patient today __30__ minutes. Discharge Plan Discharge Attending provider: Priscila Yeung Medications: New topiramate 25 mg tablet 25 - 50 mg PO BEDTIME PRN (Reason: sleep) Qty: 30 0RF aripiprazole 15 mg tablet 15 mg PO DAILY 14 Days Qty: 14 0RF aripiprazole 2 mg tablet 2 mg PO DAILY Qty: 30 0RF gabapentin 300 mg capsule 300 - 600 mg PO BEDTIME PRN (Reason: sleep) Qty: 30 0RF lisdexamfetamine 30 mg capsule 30 mg PO QAM Qty: 30 0RF Rx Instructions: Partial Fill upon patient request. Continued sennosides-docusate sodium 8.6-50 mg Tablet 1 tab-cap PO BID atorvastatin 40 mg Tablet 40 mg PO BEDTIME Qty: 14 0RF sumatriptan succinate [Imitrex] 25 mg Tablet 25 mg PO Q2H PRN (Reason: Migraine Headache) Qty: 30 0RF Rx Instructions: do not exceed 8 doses per 24 hrs lorazepam 0.5 mg Tablet 0.5 mg PO BID PRN (Reason: Anxiety) Qty: 14 4RF trazodone 100 mg Tablet 100 mg PO BEDTIME Qty: 14 0RF fluticasone propionate 50 mcg/actuation [place],Suspension 1 spray INTRANASAL BID Qty: 16 0RF Rx Instructions: administer 1 spray into each nostril prazosin 2 mg Capsule 2 mg PO BEDTIME Qty: 14 0RF cetirizine 10 mg Tablet 10 mg PO BEDTIME Qty: 30 0RF benztropine 1 mg Tablet 1 mg PO BEDTIME Qty: 30 0RF Rx Instructions: Last filled 01/08/25 #30. nicotine (polacrilex) 4 mg gum 4 mg buccal Q2-4H PRN (Reason: nicotine cravings) Qty: 100 0RF Changed hydroxyzine HCl 50 mg tablet 50 mg PO Q4H PRN (Reason: Anxiety) Qty: 30 0RF sertraline 50 mg Tablet 75 mg PO DAILY Qty: 45 0RF Discontinued mirtazapine 7.5 mg Tablet 7.5 mg PO BEDTIME Qty: 30 0RF Rx Instructions: Last filled 01/08/25 #30. olanzapine 5 mg Tablet 5 mg PO Q6H PRN (Reason: Psychosis) Patient Comments: Pharmacy stated insurance will not fill for 4 tabs only [address] Yeung. aripiprazole 15 mg Tablet 15 mg PO DAILY Stand Alone Forms: Patient Portal Discharge page Patient Education: PTSD (Post Traumatic Stress Disorder) (ED), PTSD (Post Traumatic Stress Disorder) (DC) Print Language: [place] Islander
--- NOTE | 2025-03-14 22:45 | HO.PHPPROGNO ---
Subjective Subjective Date of Service: 03/14/25 Reason For Visit: bipolar Interim History: Patient seen for follow-up, anticipating discharge at the end of program today.? I am good... Going up on Zoloft to 50 was helpful . She reports trying gabapentin 900 mg for sleep but felt it made her tired in the morning and plans to go back to 600 mg which was well tolerated. Currently waiting to hear back from her psychiatrist her next appointment. Reports no acute issues or concerns. Medication compliant, medications well-tolerated. Denies any adverse effects.? Mood is stable. Depression has improved, been at a 4/10 in severity down from a 10/10. She does not find trazodone helpful and will discotninue.? Denies any hopelessness or SI. Denies thoughts of harming self or others at this time. Denies any aggressive ideation or HI. Denies any paranoia or AH or VH. Sleep, appetite, energy stable. Mental Status Exam Mental Status Exam Narrative: Alert, oriented, in no acute distress. Calm, cooperative. Mood less depressed, affect subdued otherwise appropriate. Speech normal. Thought process linear, coherent, more goal-directed. Thought content related to stressors, future-oriented, denies any helplessness, hopelessness or SI.? No aggressive ideation or HI. No paranoia or delusional content elicited. No evidence of psychosis. Insight and judgment fair-good. Diagnostics Vital Signs (24Hr): BMI result Body Mass Index 31.9 Assessment & Plan Assessment & Plan (1) Bipolar disorder: Status: Acute Code(s): F31.9 - Bipolar disorder, unspecified (2) Post traumatic stress disorder: Status: Acute Code(s): F43.10 - Post-traumatic stress disorder, unspecified (3) Cocaine use disorder in remission: Status: Acute Code(s): F14.91 - Cocaine use, unspecified, in remission (4) Opioid use disorder in remission: Status: Acute Code(s): F11.91 - Opioid use, unspecified, in remission (5) Attention-deficit hyperactivity disorder, unspecified type: Status: Acute Code(s): F90.9 - Attention-deficit hyperactivity disorder, unspecified type Plan Discharge from [facility] Continue regular medications? Refills sent to pharmacy Will defer further medication management to outpatient provider *Safety plan reviewed *Discharge diagnoses, treatment course, discharge plan have been reviewed with patient (including medication regime, medication management, potential side effects) as well as treatment rationale were also revisited *Discharge paperwork signed and given to patient, copy sent for scanning to chart Patient educated on: diagnosis, medication risk/benefits and substance abuse Informed Consent: understands Reason for contiued partial hosp. stay Substantial Risk for: stable for discharge Certification I certify that partial hospital treatment is medically necessary due to the symptoms and problems resulting from the patient's mental illness and the failure to treat the patient at the partial hospital level of care would likely result in the patient requiring inpatient psychiatric care which could not be prevented at a less intensive level of care. Total time managing care of this patient today __40__ minutes. Discharge Plan Discharge Attending provider: Priscila Yeung Medications: New topiramate 25 mg tablet 25 - 50 mg PO BEDTIME PRN (Reason: sleep) Qty: 30 0RF aripiprazole 15 mg tablet 15 mg PO DAILY 14 Days Qty: 14 0RF aripiprazole 2 mg tablet 2 mg PO DAILY Qty: 30 0RF gabapentin 300 mg capsule 300 - 600 mg PO BEDTIME PRN (Reason: sleep) Qty: 30 0RF lisdexamfetamine 30 mg capsule 30 mg PO QAM Qty: 30 0RF Rx Instructions: Partial Fill upon patient request. Continued sennosides-docusate sodium 8.6-50 mg Tablet 1 tab-cap PO BID atorvastatin 40 mg Tablet 40 mg PO BEDTIME Qty: 14 0RF sumatriptan succinate [Imitrex] 25 mg Tablet 25 mg PO Q2H PRN (Reason: Migraine Headache) Qty: 30 0RF Rx Instructions: do not exceed 8 doses per 24 hrs lorazepam 0.5 mg Tablet 0.5 mg PO BID PRN (Reason: Anxiety) Qty: 14 4RF trazodone 100 mg Tablet 100 mg PO BEDTIME Qty: 14 0RF fluticasone propionate 50 mcg/actuation [place],Suspension 1 spray INTRANASAL BID Qty: 16 0RF Rx Instructions: administer 1 spray into each nostril prazosin 2 mg Capsule 2 mg PO BEDTIME Qty: 14 0RF cetirizine 10 mg Tablet 10 mg PO BEDTIME Qty: 30 0RF benztropine 1 mg Tablet 1 mg PO BEDTIME Qty: 30 0RF Rx Instructions: Last filled 01/08/25 #30. nicotine (polacrilex) 4 mg gum 4 mg buccal Q2-4H PRN (Reason: nicotine cravings) Qty: 100 0RF Changed hydroxyzine HCl 50 mg tablet 50 mg PO Q4H PRN (Reason: Anxiety) Qty: 30 0RF sertraline 50 mg Tablet 75 mg PO DAILY Qty: 45 0RF Discontinued mirtazapine 7.5 mg Tablet 7.5 mg PO BEDTIME Qty: 30 0RF Rx Instructions: Last filled 01/08/25 #30. olanzapine 5 mg Tablet 5 mg PO Q6H PRN (Reason: Psychosis) Patient Comments: Pharmacy stated insurance will not fill for 4 tabs only [address] Yeung. aripiprazole 15 mg Tablet 15 mg PO DAILY Stand Alone Forms: Patient Portal Discharge page Patient Education: PTSD (Post Traumatic Stress Disorder) (ED), PTSD (Post Traumatic Stress Disorder) (DC) Print Language: Burmese
== END 2025-03-14 23:59 | disposition home or self-care (01) ==
LOC: HO.PHPA 12:15
PROVIDERS: Visit Provider Psychiatry & Neurology Psychiatry
DX: F31.9 Bipolar disorder, unspecified (principal); F43.10 Post-traumatic stress disorder, unspecified; F90.9 Attention-deficit hyperactivity disorder, unspecified type; F14.91 Cocaine use, unspecified, in remission; F11.91 Opioid use, unspecified, in remission; Z79.899 Other long term (current) drug therapy
CPT/HCPCS: 80307; 90791; 90853